=== PATIENT | male | born 1955 | race Caucasian/White ===

== ENCOUNTER 2021-06-13 17:49 | Inpatient (IN) ==
[2021-06-13] MEDS ORDERED: Isovue-370 500 ML BOTTLE IVP ONE (18:21)
[2021-06-13 19:08] LABS: Bilirubin,Urine Negative (Negative); Blood,Urine Negative (Negative); Clarity,Urine Clear (Clear); Color,Urine Colorless (Yellow); Glucose,Urine (UA) Normal (Normal); Ketones,Urine Negative (Negative); Leukocyte Esterase,Urine Negative (Negative); Nitrite,Urine Negative (Negative); Protein,Urine Trace mg/dL (Neg-Trace); Specific Gravity,Urine 1.009 (1.010-1.025); Urobilinogen,Urine Normal (Normal)
[2021-06-13 19:42] LABS: Basophils % 0.8 %; Eosinophils # 0.1 K/mcL (0.0-0.6); Eosinophils % 2.5 %; Hematocrit 39.9 % (37.5-50.1); Hemoglobin 12.5 g/dL (12.9-16.9); Immature Granulocytes % 0.8 % (0-4); Lymphocytes # 2.4 K/mcL (0.6-4.6); Lymphocytes % 47.1 %; Mean Corpuscular HGB Conc 31.3 g/dL (31.6-35.5); Mean Corpuscular Hemoglobin 27.2 pg (28.0-33.3); Mean Corpuscular Volume 86.7 fL (83.0-100.0); Mean Platelet Volume 8.9 fL (9.4-12.4); Monocytes # 0.5 K/mcL (0.0-1.3); Platelet Count 235 K/mcL (140-400); Red Cell Distribution Width 15.6 % (11.5-14.5); Segmented Neutrophils % 39.8 %; White Blood Count 5.1 K/mcL (4.3-11.1)
[2021-06-13 19:49] LABS: Alanine Aminotransferase 20 Units/L (7-52); Albumin 3.8 g/dL (3.5-5.7); Albumin/Globulin Ratio 0.9 (1.1-2.2); Alkaline Phosphatase 105 Units/L (34-104); Aspartate Amino Transferase 46 Units/L (13-39); BUN/Creatinine Ratio 8 (6-26); Bilirubin,Total 0.3 mg/dL (0.3-1.0); Blood Urea Nitrogen 6 mg/dL (8-23); C-Reactive Protein 11 mg/L (Less than 10); Carbon Dioxide 28 mEq/L (23-29); Chloride 101 mEq/L (98-107); Ethanol 377 mg/dL (Less than 10); Globulin 4.2 g/dL (2.4-3.5); Glucose 140 mg/dL (70-105); Osmolality,Calculated 294 (280-300); Potassium 3.9 mEq/L (3.5-5.1); Sodium 142 mEq/L (136-145); eGFR For African Americans > 60 (> 60); eGFR For Non-African Americans > 60 (> 60)
[2021-06-13] MEDS ORDERED: *HR* OxyCODONE Immed Rel 5 MG TABLET PO ONE (22:27)
[2021-06-14] MEDS ORDERED: Ondansetron ODT 4 MG TAB.RAPDIS SL PRN (00:29)
[2021-06-14] MEDS ORDERED: D5% in Water 1,000 ML IVC PRN (00:29)
[2021-06-14] MEDS ORDERED: Naloxone 0.4 MG/ML INJ IVP PRN (00:29)
[2021-06-14] MEDS ORDERED: Melatonin 3 MG TABLET PO PRN (00:29)
[2021-06-14] MEDS ORDERED: Dextrose 4 GM Chewable Tablets PO PRN ×2 (00:29)
[2021-06-14] MEDS ORDERED: *HR* Dextrose 50 % in Water (Syg) 50 ML SYRINGE IVP PRN (00:29)
[2021-06-14] MEDS ORDERED: Ketorolac 30 MG/ML VIAL IM ONE (00:50)
[2021-06-14] MEDS ORDERED: Gadolinium Contrast Agent (WT Based) IV PRN (01:14)
[2021-06-14] MEDS ORDERED: *HR* LORazepam 2 MG/ML VIAL IVP PRN ×3 (01:24→10:50)
[2021-06-14] MEDS: Insulin LISPRO 300 UNITS/3 ML VIAL SUBQ SCH ×4 (02:28→16:19)
[2021-06-14] MEDS: Folic Acid 1 MG in 0.9 % Sodium Chloride 50 ML IVPB SCH ×2 (02:36→09:31)
[2021-06-14] MEDS: Acetaminophen 325 MG TABLET PO PRN ×3 (03:01→21:42)
[2021-06-14 03:12] LABS: INR 1.2; Prothrombin Time 13.3 Seconds (9.4-12.1)
[2021-06-14 03:15] LABS: Activated Partial Thrombo Time 31.1 Seconds (26.0-36.0)
[2021-06-14 03:21] LABS: Basophils % 0.4 %; Eosinophils # 0.2 K/mcL (0.0-0.6); Eosinophils % 2.1 %; Hemoglobin 12.4 g/dL (12.9-16.9); Immature Granulocytes % 0.4 % (0-4); Lymphocytes # 2.1 K/mcL (0.6-4.6); Lymphocytes % 28.7 %; Mean Corpuscular HGB Conc 32.6 g/dL (31.6-35.5); Mean Corpuscular Hemoglobin 27.8 pg (28.0-33.3); Mean Corpuscular Volume 85.2 fL (83.0-100.0); Mean Platelet Volume 9.4 fL (9.4-12.4); Monocytes # 0.7 K/mcL (0.0-1.3); Monocytes % 9.6 %; Neutrophils # 4.3 K/mcL (1.6-8.9); Platelet Count 257 K/mcL (140-400); Red Blood Count 4.46 M/mcL (4.19-5.50); Red Cell Distribution Width 15.6 % (11.5-14.5); Segmented Neutrophils % 58.8 %; White Blood Count 7.3 K/mcL (4.3-11.1)
[2021-06-14 03:30] LABS: Alanine Aminotransferase 19 Units/L (7-52); Albumin 3.8 g/dL (3.5-5.7); Albumin/Globulin Ratio 0.9 (1.1-2.2); Alkaline Phosphatase 99 Units/L (34-104); Aspartate Amino Transferase 43 Units/L (13-39); BUN/Creatinine Ratio 12 (6-26); Bilirubin,Total 0.3 mg/dL (0.3-1.0); Blood Urea Nitrogen 8 mg/dL (8-23); C-Reactive Protein 9 mg/L (Less than 10); Carbon Dioxide 19 mEq/L (23-29); Chloride 100 mEq/L (98-107); Chol/HDL Ratio 3.2 (0-4.9); Cholesterol 178 mg/dL (< 200); Ethanol 93 mg/dL (Less than 10); Globulin 4.1 g/dL (2.4-3.5); Glucose 231 mg/dL (70-105); HDL Cholesterol 55 mg/dL (40-59); LDL Cholesterol,Calculated 85 mg/dL (< 100); Magnesium 1.4 mg/dL (1.6-2.6); Osmolality,Calculated 290 (280-300); Phosphorous 2.5 mg/dL (2.7-4.5); Potassium 3.7 mEq/L (3.5-5.1); Sodium 137 mEq/L (136-145); Total Protein 7.9 g/dL (6.4-8.9); Triglycerides 192 mg/dL (< 150); eGFR For African Americans > 60 (> 60); eGFR For Non-African Americans > 60 (> 60)
[2021-06-14 03:52] LABS: Estimated Average Glucose 148 mg/dl; Hemoglobin A1C 6.8 %
[2021-06-14] MEDS: Thiamine (B-1) 100 MG in 0.9 % Sodium Chloride 50 ML IVPB SCH ×2 (04:23→09:31)
[2021-06-14] MEDS ORDERED: Vancomycin 2,000 MG/520 ML IV.SOLN IVPB ONE (05:00)
[2021-06-14 05:03] LABS: Amphetamine Screen,Urine Negative ng/mL (Cutoff=1000); Barbiturate Screen,Urine Negative ng/mL (Cutoff=200); Benzodiazepines Screen,Urine Negative ng/mL (Cutoff=200); Cannabinoid Screen,Urine Negative ng/mL (Cutoff = 50); Cocaine Screen,Urine Negative ng/mL (Cutoff= 300); Opiate Screen,Urine Negative ng/mL (Cutoff=300); Phencyclidine Screen,Urine Negative ng/mL (Cutoff=25)
[2021-06-14 05:16] LABS: Bacteria,Urine Few per hpf (None-Few); Bilirubin,Urine Negative (Negative); Blood,Urine Negative (Negative); Clarity,Urine Clear (Clear); Color,Urine Yellow (Yellow); Glucose,Urine (UA) 50 mg/dL (Normal); Hyaline Casts,Urine Few per lpf (None Seen); Ketones,Urine Trace mg/dL (Negative); Leukocyte Esterase,Urine Negative (Negative); Mucus,Urine Few per lpf (None-Few); Nitrite,Urine Negative (Negative); Protein,Urine 30 mg/dL (Neg-Trace); Specific Gravity,Urine > 1.030 (1.010-1.025); Squamous Epithelial Cell,Urine Few per hpf (None-Few); Urobilinogen,Urine Normal (Normal); WBC,Urine 0-3 per hpf (0-3)
[2021-06-14] MEDS: 0.9 % Sodium Chloride 1,000 ML IVC SCH ×2 (05:36→21:46)
[2021-06-14] MEDS: *HR* Heparin 5,000 UNIT/ML VIAL SQ SCH ×2 (05:49→18:16)
[2021-06-14] MEDS: Cefepime HCl 2,000 MG in 0.9 % Sodium Chloride 10 ML IVP SCH ×2 (07:42→15:21)
[2021-06-14] MEDS: lisinopriL 20 MG TABLET PO SCH (07:44)
[2021-06-14] MEDS: Gabapentin 400 MG CAPSULE PO SCH ×3 (07:45→21:42)
[2021-06-14] MEDS: *HR* OxyCODONE Immed Rel 5 MG TABLET PO PRN ×2 (10:52→18:17)
[2021-06-14] MEDS ORDERED: GADOBUTROL 30 MMOL/30 ML VIAL IVP ONE (13:05)
[2021-06-14] MEDS ORDERED: Vancomycin 1,500 MG/265 ML IV.SOLN IVPB SCH (17:00)
[2021-06-15] MEDS: Cefepime HCl 2,000 MG in 0.9 % Sodium Chloride 10 ML IVP SCH ×3 (00:02→16:57)
[2021-06-15] MEDS: *HR* OxyCODONE Immed Rel 5 MG TABLET PO PRN ×4 (00:23→20:21)
[2021-06-15] MEDS: Vancomycin 1,500 MG/265 ML IV.SOLN IVPB SCH (05:17)
[2021-06-15] MEDS: *HR* Heparin 5,000 UNIT/ML VIAL SQ SCH ×2 (05:17→16:58)
[2021-06-15] MEDS: Thiamine (B-1) 100 MG in 0.9 % Sodium Chloride 50 ML IVPB SCH (08:41)
[2021-06-15] MEDS: lisinopriL 20 MG TABLET PO SCH (08:41)
[2021-06-15] MEDS: Gabapentin 400 MG CAPSULE PO SCH ×3 (08:41→20:22)
[2021-06-15] MEDS: Aspirin 81 MG TAB.CHEW PO SCH (08:41)
[2021-06-15] MEDS: Insulin LISPRO 300 UNITS/3 ML VIAL SUBQ SCH ×3 (08:43→19:30)
[2021-06-15] MEDS: Folic Acid 1 MG in 0.9 % Sodium Chloride 50 ML IVPB SCH (10:18)
[2021-06-15] MEDS: Acetaminophen 325 MG TABLET PO PRN (10:29)
[2021-06-16] MEDS: Cefepime HCl 2,000 MG in 0.9 % Sodium Chloride 10 ML IVP SCH ×4 (00:24→23:13)
[2021-06-16] MEDS: Vancomycin 1,500 MG/265 ML IV.SOLN IVPB SCH (05:24)
[2021-06-16] MEDS: *HR* Heparin 5,000 UNIT/ML VIAL SQ SCH ×2 (05:24→17:40)
[2021-06-16] MEDS: *HR* OxyCODONE Immed Rel 5 MG TABLET PO PRN ×3 (06:51→22:41)
[2021-06-16 07:43] LABS: Basophils % 0.5 %; Eosinophils # 0.3 K/mcL (0.0-0.6); Eosinophils % 8.1 %; Hematocrit 32.8 % (37.5-50.1); Immature Granulocytes % 0.2 % (0-4); Lymphocytes # 1.4 K/mcL (0.6-4.6); Lymphocytes % 34.5 %; Mean Corpuscular HGB Conc 31.4 g/dL (31.6-35.5); Mean Corpuscular Hemoglobin 28.1 pg (28.0-33.3); Mean Corpuscular Volume 89.4 fL (83.0-100.0); Mean Platelet Volume 9.8 fL (9.4-12.4); Monocytes # 0.6 K/mcL (0.0-1.3); Monocytes % 13.4 %; Neutrophils # 1.8 K/mcL (1.6-8.9); Platelet Count 140 K/mcL (140-400); Red Blood Count 3.67 M/mcL (4.19-5.50); Red Cell Distribution Width 15.1 % (11.5-14.5); Segmented Neutrophils % 43.3 %; White Blood Count 4.1 K/mcL (4.3-11.1)
[2021-06-16 07:59] LABS: Hemoglobin 10.3 g/dL (12.9-16.9)
[2021-06-16] MEDS: lisinopriL 20 MG TABLET PO SCH (08:38)
[2021-06-16] MEDS: Folic Acid 1 MG in 0.9 % Sodium Chloride 50 ML IVPB SCH (08:38)
[2021-06-16] MEDS: Gabapentin 400 MG CAPSULE PO SCH ×3 (08:38→21:24)
[2021-06-16] MEDS: Aspirin 81 MG TAB.CHEW PO SCH (08:59)
[2021-06-16] MEDS: Insulin LISPRO 300 UNITS/3 ML VIAL SUBQ SCH ×3 (08:59→17:40)
[2021-06-16] MEDS ORDERED: amLODIPine 5 MG TABLET PO SCH (09:00)
[2021-06-16] MEDS: Thiamine (B-1) 100 MG in 0.9 % Sodium Chloride 50 ML IVPB SCH (10:57)
[2021-06-16] MEDS: Vancomycin 1,250 MG/262.5 ML IV.SOLN IVPB SCH (21:23)
[2021-06-16] MEDS: Acetaminophen 325 MG TABLET PO PRN (22:38)
[2021-06-17] MEDS: *HR* OxyCODONE Immed Rel 5 MG TABLET PO PRN ×3 (04:35→17:19)
[2021-06-17] MEDS: *HR* Heparin 5,000 UNIT/ML VIAL SQ SCH ×2 (06:19→17:19)
[2021-06-17] MEDS ORDERED: *HR* HYDROmorphone PF 0.5 MG/0.5 ML SYRINGE IVP PRN (07:00)
[2021-06-17 07:01] LABS: Basophils % 0.8 %; Eosinophils # 0.4 K/mcL (0.0-0.6); Eosinophils % 7.5 %; Hematocrit 35.4 % (37.5-50.1); Immature Granulocytes % 0.8 % (0-4); Lymphocytes # 1.9 K/mcL (0.6-4.6); Lymphocytes % 38.3 %; Mean Corpuscular HGB Conc 31.1 g/dL (31.6-35.5); Mean Corpuscular Hemoglobin 27.6 pg (28.0-33.3); Mean Corpuscular Volume 88.9 fL (83.0-100.0); Mean Platelet Volume 9.3 fL (9.4-12.4); Monocytes # 0.5 K/mcL (0.0-1.3); Monocytes % 10.8 %; Neutrophils # 2.1 K/mcL (1.6-8.9); Platelet Count 153 K/mcL (140-400); Red Blood Count 3.98 M/mcL (4.19-5.50); Red Cell Distribution Width 15.2 % (11.5-14.5); Segmented Neutrophils % 41.8 %; White Blood Count 4.9 K/mcL (4.3-11.1)
[2021-06-17] MEDS ORDERED: Lidocaine 1% 20 ML MDV ONE (07:03)
[2021-06-17] MEDS: Aspirin 81 MG TAB.CHEW PO SCH (07:29)
[2021-06-17] MEDS: lisinopriL 20 MG TABLET PO SCH (07:29)
[2021-06-17] MEDS: Gabapentin 400 MG CAPSULE PO SCH ×3 (07:30→20:23)
[2021-06-17] MEDS ORDERED: Ondansetron 4 MG/2 ML VIAL IVP PRN (07:58)
[2021-06-17] MEDS ORDERED: Lidocaine -MPF 2% 2 ML VIAL ONE (08:00)
[2021-06-17] MEDS ORDERED: Ringers Solution, Lactated 1,000 ML IVC SCH (08:00)
[2021-06-17] MEDS ORDERED: Ketamine HCL *QUVA* 50mg (1mL) SYRINGE ONE (08:09)
[2021-06-17] MEDS ORDERED: Bupivacaine/EPI 1:200k 0.25% 50 ML VIAL ONE (08:26)
[2021-06-17] MEDS ORDERED: Ondansetron ODT 4 MG TAB.RAPDIS SL PRN (09:35)
[2021-06-17] MEDS ORDERED: *HR* LORazepam 2 MG/ML VIAL IVP PRN ×3 (09:35)
[2021-06-17] MEDS ORDERED: D5% in Water 1,000 ML IVC PRN (09:35)
[2021-06-17] MEDS ORDERED: Dextrose 4 GM Chewable Tablets PO PRN ×2 (09:35)
[2021-06-17] MEDS ORDERED: Naloxone 0.4 MG/ML INJ IVP PRN (09:35)
[2021-06-17] MEDS ORDERED: *HR* Dextrose 50 % in Water (Syg) 50 ML SYRINGE IVP PRN (09:35)
[2021-06-17] MEDS: Insulin LISPRO 300 UNITS/3 ML VIAL SUBQ SCH ×3 (09:36→17:27)
[2021-06-17] MEDS: Thiamine (B-1) 100 MG in 0.9 % Sodium Chloride 50 ML IVPB SCH (09:38)
[2021-06-17] MEDS: Vancomycin 1,250 MG/262.5 ML IV.SOLN IVPB SCH ×3 (09:39→20:56)
[2021-06-17] MEDS: Folic Acid 1 MG in 0.9 % Sodium Chloride 50 ML IVPB SCH (09:39)
[2021-06-17] MEDS: Cefepime HCl 2,000 MG in 0.9 % Sodium Chloride 10 ML IVP SCH ×3 (09:39→17:20)
[2021-06-17] MEDS ORDERED: Ketorolac 30 MG/ML VIAL IVP ONE (11:08)
[2021-06-17] MEDS ORDERED: *HR* HYDROmorphone (PF) 1 MG/ML SYRINGE IVP STA (13:17)
[2021-06-17] MEDS: *HR* HYDROmorphone 2 MG/ML SYRINGE IVP PRN (20:20)
[2021-06-17] MEDS: Melatonin 3 MG TABLET PO PRN (20:20)
[2021-06-18] MEDS: *HR* OxyCODONE Immed Rel 5 MG TABLET PO PRN ×4 (00:50→21:07)
[2021-06-18] MEDS: Cefepime HCl 2,000 MG in 0.9 % Sodium Chloride 10 ML IVP SCH ×3 (01:38→18:21)
[2021-06-18] MEDS: *HR* Heparin 5,000 UNIT/ML VIAL SQ SCH ×2 (05:27→18:21)
[2021-06-18 05:55] LABS: Basophils % 0.6 %; Eosinophils # 0.3 K/mcL (0.0-0.6); Eosinophils % 5.4 %; Hematocrit 29.2 % (37.5-50.1); Immature Granulocytes % 0.6 % (0-4); Lymphocytes # 1.1 K/mcL (0.6-4.6); Lymphocytes % 20.3 %; Mean Corpuscular HGB Conc 30.8 g/dL (31.6-35.5); Mean Corpuscular Hemoglobin 27.8 pg (28.0-33.3); Mean Corpuscular Volume 90.1 fL (83.0-100.0); Mean Platelet Volume 9.3 fL (9.4-12.4); Monocytes # 0.7 K/mcL (0.0-1.3); Monocytes % 13.2 %; Neutrophils # 3.1 K/mcL (1.6-8.9); Platelet Count 132 K/mcL (140-400); Red Blood Count 3.24 M/mcL (4.19-5.50); Red Cell Distribution Width 15.3 % (11.5-14.5); Segmented Neutrophils % 59.9 %; White Blood Count 5.2 K/mcL (4.3-11.1)
[2021-06-18 06:17] LABS: BUN/Creatinine Ratio 16 (6-26); Blood Urea Nitrogen 12 mg/dL (8-23); Calcium 8.6 mg/dL (8.6-10.3); Carbon Dioxide 26 mEq/L (23-29); Chloride 106 mEq/L (98-107); Glucose 157 mg/dL (70-105); Osmolality,Calculated 291 (280-300); Potassium 4.2 mEq/L (3.5-5.1); Sodium 139 mEq/L (136-145); eGFR For African Americans > 60 (> 60); eGFR For Non-African Americans > 60 (> 60)
[2021-06-18] MEDS: Gabapentin 400 MG CAPSULE PO SCH ×3 (08:35→21:03)
[2021-06-18] MEDS: lisinopriL 20 MG TABLET PO SCH (08:35)
[2021-06-18] MEDS: Aspirin 81 MG TAB.CHEW PO SCH (08:35)
[2021-06-18] MEDS: Insulin LISPRO 300 UNITS/3 ML VIAL SUBQ SCH ×3 (08:36→17:34)
[2021-06-18] MEDS ORDERED: Thiamine (B-1) 100 MG in 0.9 % Sodium Chloride 50 ML IVPB SCH (09:00)
[2021-06-18] MEDS ORDERED: Folic Acid 1 MG in 0.9 % Sodium Chloride 50 ML IVPB SCH (09:00)
[2021-06-18] MEDS ORDERED: Furosemide 20 MG/2 ML VIAL IVP ONE (10:42)
[2021-06-18] MEDS: Vancomycin 1,500 MG/265 ML IV.SOLN IVPB SCH ×2 (11:42→23:03)
[2021-06-18] MEDS: *HR* HYDROmorphone 2 MG/ML SYRINGE IVP PRN (16:18)
[2021-06-18] MEDS: Melatonin 3 MG TABLET PO PRN (23:03)
[2021-06-18] MEDS: Vancomycin 1,250 MG/262.5 ML IV.SOLN IVPB SCH (23:57)
[2021-06-19] MEDS: Cefepime HCl 2,000 MG in 0.9 % Sodium Chloride 10 ML IVP SCH ×3 (01:59→16:33)
[2021-06-19] MEDS: *HR* OxyCODONE Immed Rel 5 MG TABLET PO PRN ×2 (04:59→16:36)
[2021-06-19] MEDS: *HR* Heparin 5,000 UNIT/ML VIAL SQ SCH ×2 (05:00→16:35)
[2021-06-19 06:19] LABS: Basophils % 0.5 %; Eosinophils # 0.3 K/mcL (0.0-0.6); Eosinophils % 4.4 %; Hematocrit 30.2 % (37.5-50.1); Hemoglobin 9.4 g/dL (12.9-16.9); Immature Granulocytes % 0.5 % (0-4); Lymphocytes # 1.6 K/mcL (0.6-4.6); Lymphocytes % 27.7 %; Mean Corpuscular HGB Conc 31.1 g/dL (31.6-35.5); Mean Corpuscular Hemoglobin 27.9 pg (28.0-33.3); Mean Corpuscular Volume 89.6 fL (83.0-100.0); Mean Platelet Volume 9.6 fL (9.4-12.4); Monocytes # 0.9 K/mcL (0.0-1.3); Platelet Count 152 K/mcL (140-400); Red Blood Count 3.37 M/mcL (4.19-5.50); Red Cell Distribution Width 15.8 % (11.5-14.5); Segmented Neutrophils % 51.9 %; White Blood Count 5.7 K/mcL (4.3-11.1)
[2021-06-19 06:51] LABS: BUN/Creatinine Ratio 14 (6-26); Blood Urea Nitrogen 12 mg/dL (8-23); Calcium 9.1 mg/dL (8.6-10.3); Carbon Dioxide 26 mEq/L (23-29); Chloride 104 mEq/L (98-107); Glucose 145 mg/dL (70-105); Osmolality,Calculated 290 (280-300); Potassium 3.8 mEq/L (3.5-5.1); Sodium 139 mEq/L (136-145); eGFR For African Americans > 60 (> 60); eGFR For Non-African Americans > 60 (> 60)
[2021-06-19] MEDS: *HR* HYDROmorphone 2 MG/ML SYRINGE IVP PRN ×2 (07:38→11:41)
[2021-06-19] MEDS: Aspirin 81 MG TAB.CHEW PO SCH (07:39)
[2021-06-19] MEDS: Gabapentin 400 MG CAPSULE PO SCH ×3 (07:39→20:14)
[2021-06-19] MEDS: lisinopriL 20 MG TABLET PO SCH (07:39)
[2021-06-19] MEDS: Insulin LISPRO 300 UNITS/3 ML VIAL SUBQ SCH ×3 (07:40→16:36)
[2021-06-19] MEDS: Vancomycin 1,500 MG/265 ML IV.SOLN IVPB SCH ×2 (11:41→23:47)
[2021-06-19] MEDS: Acetaminophen 325 MG TABLET PO PRN (20:14)
[2021-06-20] MEDS: *HR* HYDROmorphone 2 MG/ML SYRINGE IVP PRN ×2 (00:47→08:17)
[2021-06-20] MEDS: Cefepime HCl 2,000 MG in 0.9 % Sodium Chloride 10 ML IVP SCH ×3 (02:47→17:49)
[2021-06-20] MEDS: *HR* Heparin 5,000 UNIT/ML VIAL SQ SCH ×2 (04:54→16:55)
[2021-06-20] MEDS: *HR* OxyCODONE Immed Rel 5 MG TABLET PO PRN ×4 (04:55→22:12)
[2021-06-20 06:02] LABS: Basophils % 0.6 %; Eosinophils # 0.2 K/mcL (0.0-0.6); Eosinophils % 4.9 %; Hematocrit 28.9 % (37.5-50.1); Hemoglobin 8.9 g/dL (12.9-16.9); Immature Granulocytes % 0.8 % (0-4); Lymphocytes # 1.3 K/mcL (0.6-4.6); Lymphocytes % 28.2 %; Mean Corpuscular HGB Conc 30.8 g/dL (31.6-35.5); Mean Corpuscular Hemoglobin 27.7 pg (28.0-33.3); Monocytes # 0.9 K/mcL (0.0-1.3); Monocytes % 19.7 %; Neutrophils # 2.2 K/mcL (1.6-8.9); Platelet Count 148 K/mcL (140-400); Red Blood Count 3.21 M/mcL (4.19-5.50); Red Cell Distribution Width 15.6 % (11.5-14.5); Segmented Neutrophils % 45.8 %; White Blood Count 4.7 K/mcL (4.3-11.1)
[2021-06-20 06:16] LABS: BUN/Creatinine Ratio 14 (6-26); Blood Urea Nitrogen 10 mg/dL (8-23); Calcium 8.9 mg/dL (8.6-10.3); Carbon Dioxide 27 mEq/L (23-29); Chloride 105 mEq/L (98-107); Glucose 153 mg/dL (70-105); Osmolality,Calculated 290 (280-300); Potassium 3.6 mEq/L (3.5-5.1); Sodium 139 mEq/L (136-145); eGFR For African Americans > 60 (> 60); eGFR For Non-African Americans > 60 (> 60)
[2021-06-20 06:43] LABS: Platelet Estimate Normal (Normal)
[2021-06-20] MEDS: lisinopriL 20 MG TABLET PO SCH (07:48)
[2021-06-20] MEDS: Gabapentin 400 MG CAPSULE PO SCH ×3 (07:49→20:11)
[2021-06-20] MEDS: Aspirin 81 MG TAB.CHEW PO SCH (07:49)
[2021-06-20] MEDS: Insulin LISPRO 300 UNITS/3 ML VIAL SUBQ SCH ×3 (07:49→16:55)
[2021-06-20] MEDS: Vancomycin 1,500 MG/265 ML IV.SOLN IVPB SCH ×2 (11:38→22:11)
[2021-06-20] MEDS: Acetaminophen 325 MG TABLET PO PRN (12:36)
[2021-06-20] MEDS: Melatonin 3 MG TABLET PO PRN (20:11)
[2021-06-21] MEDS: Vancomycin 1,500 MG/265 ML IV.SOLN IVPB SCH (00:23)
[2021-06-21] MEDS: Cefepime HCl 2,000 MG in 0.9 % Sodium Chloride 10 ML IVP SCH ×2 (01:33→09:42)
[2021-06-21 05:26] LABS: Basophils % 0.9 %; Eosinophils # 0.2 K/mcL (0.0-0.6); Eosinophils % 5.2 %; Hematocrit 28.2 % (37.5-50.1); Hemoglobin 8.4 g/dL (12.9-16.9); Immature Granulocytes % 1.1 % (0-4); Lymphocytes # 1.2 K/mcL (0.6-4.6); Lymphocytes % 27.7 %; Mean Corpuscular HGB Conc 29.8 g/dL (31.6-35.5); Mean Corpuscular Hemoglobin 27.2 pg (28.0-33.3); Mean Corpuscular Volume 91.3 fL (83.0-100.0); Mean Platelet Volume 9.9 fL (9.4-12.4); Monocytes % 22.4 %; Neutrophils # 1.9 K/mcL (1.6-8.9); Nucleated Red Blood Cells 0.5 /100 WBC (0); Platelet Count 160 K/mcL (140-400); Red Blood Count 3.09 M/mcL (4.19-5.50); Red Cell Distribution Width 15.9 % (11.5-14.5); Segmented Neutrophils % 42.7 %; White Blood Count 4.4 K/mcL (4.3-11.1)
[2021-06-21 05:35] LABS: Platelet Estimate Normal (Normal)
[2021-06-21 05:48] LABS: BUN/Creatinine Ratio 13 (6-26); Blood Urea Nitrogen 9 mg/dL (8-23); Calcium 8.6 mg/dL (8.6-10.3); Carbon Dioxide 27 mEq/L (23-29); Chloride 106 mEq/L (98-107); Glucose 171 mg/dL (70-105); Osmolality,Calculated 293 (280-300); Potassium 3.8 mEq/L (3.5-5.1); Sodium 140 mEq/L (136-145); eGFR For African Americans > 60 (> 60); eGFR For Non-African Americans > 60 (> 60)
[2021-06-21] MEDS: *HR* Heparin 5,000 UNIT/ML VIAL SQ SCH (05:58)
[2021-06-21] MEDS: *HR* OxyCODONE Immed Rel 5 MG TABLET PO PRN ×2 (06:03→10:30)
[2021-06-21] MEDS: Insulin LISPRO 300 UNITS/3 ML VIAL SUBQ SCH ×2 (08:51→12:05)
[2021-06-21] MEDS: lisinopriL 20 MG TABLET PO SCH (09:43)
[2021-06-21] MEDS: Aspirin 81 MG TAB.CHEW PO SCH (09:43)
[2021-06-21] MEDS: Gabapentin 400 MG CAPSULE PO SCH ×2 (10:29→15:45)
[2021-06-21] MEDS: Acetaminophen 325 MG TABLET PO PRN (10:30)
[2021-06-21] MEDS ORDERED: DAPTOmycin 650 MG in 0.9 % Sodium Chloride 100 ML IVPB SCH (11:00)
[2021-06-21 15:36] VITALS: BP 148/62; PULSE 78; TEMP 97.2; O2SAT 95
== END 2021-06-21 16:01 | DRG 617 ==
LOC: EMEROOARM 17:49 → 3ANU 17:49 → SUATTDRO 06-14 00:30 → 3ANU 06-14 01:39 → SUATTDRO 06-16 18:00
PROVIDERS: ADMIT Internal Medicine; ATTEND Hospitalist

== ENCOUNTER 2021-07-25 15:40 | Inpatient (IN) ==
[2021-07-25] MEDS ORDERED: Ondansetron ODT 4 MG TAB.RAPDIS SL PRN (15:57)
[2021-07-25] MEDS ORDERED: Naloxone 0.4 MG/ML INJ IVP PRN (15:57)
[2021-07-25] MEDS ORDERED: *HR* Dextrose 50 % in Water (Syg) 50 ML SYRINGE IVP PRN (16:03)
[2021-07-25] MEDS ORDERED: D5% in Water 1,000 ML IVC PRN (16:03)
[2021-07-25] MEDS ORDERED: Dextrose 4 GM Chewable Tablets PO PRN ×2 (16:03)
[2021-07-25 16:57] LABS: Alanine Aminotransferase 46 Units/L (7-52); Albumin 3.6 g/dL (3.5-5.7); Alkaline Phosphatase 116 Units/L (34-104); Aspartate Amino Transferase 34 Units/L (13-39); BUN/Creatinine Ratio 16 (6-26); Bilirubin,Total 0.7 mg/dL (0.3-1.0); Blood Urea Nitrogen 14 mg/dL (8-23); C-Reactive Protein 73 mg/L (Less than 10); Carbon Dioxide 24 mEq/L (23-29); Chloride 102 mEq/L (98-107); Globulin 3.6 g/dL (2.4-3.5); Glucose 286 mg/dL (70-105); Osmolality,Calculated 287 (280-300); Potassium 4.2 mEq/L (3.5-5.1); Sodium 133 mEq/L (136-145); Total Protein 7.2 g/dL (6.4-8.9); eGFR For African Americans > 60 (> 60); eGFR For Non-African Americans > 60 (> 60)
[2021-07-25 16:58] LABS: INR 1.3; Prothrombin Time 14.6 Seconds (9.4-12.1)
[2021-07-25] MEDS ORDERED: DAPTOmycin 750 MG in 0.9 % Sodium Chloride 100 ML IVPB SCH (17:00)
[2021-07-25] MEDS: Ringers Solution, Lactated 1,000 ML IVC SCH (17:00)
[2021-07-25] MEDS: *HR* OxyCODONE Immed Rel 5 MG TABLET PO PRN ×2 (17:00→23:15)
[2021-07-25] MEDS: Insulin LISPRO 300 UNITS/3 ML VIAL SUBQ SCH (17:01)
[2021-07-25 17:41] LABS: Basophils # 0.1 K/mcL (0.0-0.2); Basophils % 0.7 %; Eosinophils # 0.3 K/mcL (0.0-0.6); Hematocrit 31.8 % (37.5-50.1); Hemoglobin 9.8 g/dL (12.9-16.9); Immature Granulocytes % 1.4 % (0-4); Lymphocytes % 24.4 %; Mean Corpuscular HGB Conc 30.8 g/dL (31.6-35.5); Mean Corpuscular Hemoglobin 25.3 pg (28.0-33.3); Mean Platelet Volume 9.9 fL (9.4-12.4); Monocytes # 1.4 K/mcL (0.0-1.3); Neutrophils # 4.2 K/mcL (1.6-8.9); Nucleated Red Blood Cells 0.2 /100 WBC (0); Platelet Count 196 K/mcL (140-400); Red Blood Count 3.88 M/mcL (4.19-5.50); Red Cell Distribution Width 17.4 % (11.5-14.5); Segmented Neutrophils % 52.5 %; White Blood Count 8.1 K/mcL (4.3-11.1)
[2021-07-25] MEDS: Gabapentin 400 MG CAPSULE PO SCH (20:31)
[2021-07-25] MEDS ORDERED: Insulin LISPRO 300 UNITS/3 ML VIAL SUBQ SCH (21:00)
[2021-07-25] MEDS: *HR* Heparin 5,000 UNIT/ML VIAL SQ SCH (21:59)
[2021-07-26 04:52] LABS: Basophils # 0.1 K/mcL (0.0-0.2); Basophils % 0.9 %; Eosinophils # 0.4 K/mcL (0.0-0.6); Eosinophils % 4.5 %; Hematocrit 33.5 % (37.5-50.1); Hemoglobin 10.1 g/dL (12.9-16.9); Immature Granulocytes % 1.9 % (0-4); Lymphocytes % 24.5 %; Mean Corpuscular HGB Conc 30.1 g/dL (31.6-35.5); Mean Corpuscular Hemoglobin 24.6 pg (28.0-33.3); Mean Corpuscular Volume 81.5 fL (83.0-100.0); Mean Platelet Volume 9.9 fL (9.4-12.4); Monocytes # 1.2 K/mcL (0.0-1.3); Monocytes % 14.5 %; Neutrophils # 4.3 K/mcL (1.6-8.9); Platelet Count 208 K/mcL (140-400); Red Blood Count 4.11 M/mcL (4.19-5.50); Red Cell Distribution Width 17.1 % (11.5-14.5); Segmented Neutrophils % 53.7 %
[2021-07-26] MEDS ORDERED: Acetaminophen 325 MG TABLET PO PRN (04:53)
[2021-07-26 05:10] LABS: BUN/Creatinine Ratio 16 (6-26); Blood Urea Nitrogen 12 mg/dL (8-23); Calcium 9.2 mg/dL (8.6-10.3); Carbon Dioxide 25 mEq/L (23-29); Chloride 103 mEq/L (98-107); Glucose 147 mg/dL (70-105); Osmolality,Calculated 282 (280-300); Potassium 4.4 mEq/L (3.5-5.1); Sodium 135 mEq/L (136-145); eGFR For African Americans > 60 (> 60); eGFR For Non-African Americans > 60 (> 60)
[2021-07-26] MEDS: *HR* OxyCODONE Immed Rel 5 MG TABLET PO PRN ×3 (05:19→20:06)
[2021-07-26] MEDS: *HR* Heparin 5,000 UNIT/ML VIAL SQ SCH ×3 (05:21→21:26)
[2021-07-26] MEDS: Ringers Solution, Lactated 1,000 ML IVC SCH (06:24)
[2021-07-26] MEDS: Gabapentin 400 MG CAPSULE PO SCH ×3 (07:52→20:06)
[2021-07-26] MEDS: Insulin LISPRO 300 UNITS/3 ML VIAL SUBQ SCH ×3 (08:41→20:27)
[2021-07-26] MEDS ORDERED: Multivit/Ca/Min/Fe/FA 1 TAB TABLET PO SCH (09:00)
[2021-07-26] MEDS ORDERED: Cholecalciferol (D-3) 1,000 UNIT (25MCG) TABLET PO SCH (09:00)
[2021-07-26] MEDS ORDERED: Cefepime HCl 2,000 MG in 0.9 % Sodium Chloride Mini Bag 100 ML IVPB SCH (17:00)
[2021-07-26] MEDS ORDERED: *HR* FentaNYL (PF) 100 MCG/2 ML VIAL ONE (17:45)
[2021-07-26] MEDS ORDERED: Lidocaine -MPF 2% 2 ML VIAL ONE ×2 (17:45)
[2021-07-26] MEDS ORDERED: *HR* Propofol 200 MG/20 ML VIAL IVP ONE (17:45)
[2021-07-26] MEDS ORDERED: Lidocaine 1% 20 ML MDV ONE (17:47)
[2021-07-26] MEDS ORDERED: Vancomycin 1,000 MG VIAL ONE (18:33)
[2021-07-26] MEDS ORDERED: *HR* HYDROMORPHONE 2 MG/ML VIAL ONE (19:11)
[2021-07-26] MEDS ORDERED: Ondansetron ODT 4 MG TAB.RAPDIS SL PRN (19:21)
[2021-07-26] MEDS ORDERED: *HR* Dextrose 50 % in Water (Syg) 50 ML SYRINGE IVP PRN (19:21)
[2021-07-26] MEDS ORDERED: Naloxone 0.4 MG/ML INJ IVP PRN (19:21)
[2021-07-26] MEDS ORDERED: Dextrose 4 GM Chewable Tablets PO PRN ×2 (19:21)
[2021-07-26] MEDS ORDERED: D5% in Water 1,000 ML IVC PRN (19:21)
[2021-07-26] MEDS ORDERED: Clindamycin 600 MG/50 ML 600 MG/50 ML IV.SOLN IVPB SCH (20:00)
[2021-07-26] MEDS ORDERED: DAPTOmycin 650 MG in 0.9 % Sodium Chloride 100 ML IVPB SCH (20:00)
[2021-07-26] MEDS: Cefepime HCl 2,000 MG in 0.9 % Sodium Chloride 10 ML IVP SCH (20:06)
[2021-07-26] MEDS: Clindamycin 600 MG/50 ML 600 MG/50 ML IV.SOLN IVPB SCH (20:07)
[2021-07-26] MEDS: DAPTOmycin 650 MG in 0.9 % Sodium Chloride 100 ML IVPB SCH (21:26)
[2021-07-27] MEDS: Acetaminophen 325 MG TABLET PO PRN ×3 (01:26→15:41)
[2021-07-27] MEDS: *HR* OxyCODONE Immed Rel 5 MG TABLET PO PRN ×3 (02:13→17:42)
[2021-07-27 03:57] LABS: Basophils % 0.6 %; Eosinophils # 0.2 K/mcL (0.0-0.6); Hematocrit 29.7 % (37.5-50.1); Immature Granulocytes % 0.9 % (0-4); Lymphocytes # 1.2 K/mcL (0.6-4.6); Mean Corpuscular HGB Conc 30.3 g/dL (31.6-35.5); Mean Corpuscular Hemoglobin 24.2 pg (28.0-33.3); Mean Corpuscular Volume 79.8 fL (83.0-100.0); Mean Platelet Volume 10.2 fL (9.4-12.4); Monocytes # 0.9 K/mcL (0.0-1.3); Monocytes % 14.2 %; Platelet Count 207 K/mcL (140-400); Red Blood Count 3.72 M/mcL (4.19-5.50); Red Cell Distribution Width 17.1 % (11.5-14.5); Segmented Neutrophils % 62.3 %; White Blood Count 6.4 K/mcL (4.3-11.1)
[2021-07-27] MEDS: Cefepime HCl 2,000 MG in 0.9 % Sodium Chloride 10 ML IVP SCH ×3 (04:17→20:22)
[2021-07-27] MEDS: Clindamycin 600 MG/50 ML 600 MG/50 ML IV.SOLN IVPB SCH ×3 (04:17→20:21)
[2021-07-27 04:18] LABS: Alanine Aminotransferase 36 Units/L (7-52); Albumin 3.3 g/dL (3.5-5.7); Albumin/Globulin Ratio 0.9 (1.1-2.2); Alkaline Phosphatase 110 Units/L (34-104); Aspartate Amino Transferase 28 Units/L (13-39); BUN/Creatinine Ratio 17 (6-26); Bilirubin,Total 0.8 mg/dL (0.3-1.0); Blood Urea Nitrogen 13 mg/dL (8-23); Calcium 8.8 mg/dL (8.6-10.3); Carbon Dioxide 26 mEq/L (23-29); Chloride 100 mEq/L (98-107); Globulin 3.5 g/dL (2.4-3.5); Glucose 235 mg/dL (70-105); Osmolality,Calculated 286 (280-300); Potassium 4.4 mEq/L (3.5-5.1); Sodium 134 mEq/L (136-145); Total Protein 6.8 g/dL (6.4-8.9); eGFR For African Americans > 60 (> 60); eGFR For Non-African Americans > 60 (> 60)
[2021-07-27] MEDS: *HR* Heparin 5,000 UNIT/ML VIAL SQ SCH ×2 (06:02→14:36)
[2021-07-27] MEDS: Cholecalciferol (D-3) 1,000 UNIT (25MCG) TABLET PO SCH (07:43)
[2021-07-27] MEDS: Gabapentin 400 MG CAPSULE PO SCH ×5 (07:43→20:23)
[2021-07-27] MEDS: Multivit/Ca/Min/Fe/FA 1 TAB TABLET PO SCH (07:43)
[2021-07-27] MEDS ORDERED: Morphine Sulfate 2 MG/ML SYRINGE IVP PRN (07:54)
[2021-07-27] MEDS: Insulin LISPRO 300 UNITS/3 ML VIAL SUBQ SCH ×4 (08:45→20:23)
[2021-07-27] MEDS: Morphine Sulfate 2 MG/ML SYRINGE IVP PRN ×3 (12:19→23:39)
[2021-07-27] MEDS ORDERED: Isovue-370 500 ML BOTTLE IVP ONE (15:58)
[2021-07-27] MEDS ORDERED: *HR* Heparin 5,000 UNIT/ML VIAL IVP PRN (19:47)
[2021-07-27] MEDS: DAPTOmycin 650 MG in 0.9 % Sodium Chloride 100 ML IVPB SCH (20:21)
[2021-07-27] MEDS: Heparin 25,000UNIT/250ML 1/2NS 25,000 UNIT/250 ML IV.SOLN IVC SCH (21:22)
[2021-07-28] MEDS: Cefepime HCl 2,000 MG in 0.9 % Sodium Chloride 10 ML IVP SCH ×3 (04:01→20:51)
[2021-07-28] MEDS: Clindamycin 600 MG/50 ML 600 MG/50 ML IV.SOLN IVPB SCH ×3 (04:01→20:54)
[2021-07-28 04:10] LABS: Basophils # 0.1 K/mcL (0.0-0.2); Basophils % 0.6 %; Eosinophils # 0.2 K/mcL (0.0-0.6); Eosinophils % 2.6 %; Hematocrit 29.5 % (37.5-50.1); Immature Granulocytes % 0.7 % (0-4); Lymphocytes # 1.6 K/mcL (0.6-4.6); Lymphocytes % 19.1 %; Mean Corpuscular HGB Conc 30.5 g/dL (31.6-35.5); Mean Corpuscular Hemoglobin 24.4 pg (28.0-33.3); Mean Corpuscular Volume 79.9 fL (83.0-100.0); Mean Platelet Volume 9.8 fL (9.4-12.4); Monocytes # 1.3 K/mcL (0.0-1.3); Monocytes % 16.1 %; Platelet Count 217 K/mcL (140-400); Red Blood Count 3.69 M/mcL (4.19-5.50); Red Cell Distribution Width 17.5 % (11.5-14.5); Segmented Neutrophils % 60.9 %; White Blood Count 8.2 K/mcL (4.3-11.1)
[2021-07-28 04:22] LABS: BUN/Creatinine Ratio 13 (6-26); Blood Urea Nitrogen 9 mg/dL (8-23); Calcium 8.9 mg/dL (8.6-10.3); Carbon Dioxide 25 mEq/L (23-29); Chloride 104 mEq/L (98-107); Glucose 194 mg/dL (70-105); Osmolality,Calculated 282 (280-300); Potassium 4.3 mEq/L (3.5-5.1); Sodium 134 mEq/L (136-145); eGFR For African Americans > 60 (> 60); eGFR For Non-African Americans > 60 (> 60)
[2021-07-28] MEDS: *HR* Heparin 5,000 UNIT/ML VIAL IVP PRN (04:52)
[2021-07-28] MEDS: *HR* OxyCODONE Immed Rel 5 MG TABLET PO PRN ×3 (05:03→16:25)
[2021-07-28] MEDS: Multivit/Ca/Min/Fe/FA 1 TAB TABLET PO SCH (08:22)
[2021-07-28] MEDS: Acetaminophen 325 MG TABLET PO PRN (08:22)
[2021-07-28] MEDS: Gabapentin 400 MG CAPSULE PO SCH ×6 (08:23→20:53)
[2021-07-28] MEDS: Aspirin 81 MG TAB.CHEW PO SCH (08:23)
[2021-07-28] MEDS: Morphine Sulfate 2 MG/ML SYRINGE IVP PRN ×3 (08:24→20:46)
[2021-07-28] MEDS: Loratadine 10 MG TABLET PO SCH (08:24)
[2021-07-28] MEDS: lisinopriL 20 MG TABLET PO SCH (08:24)
[2021-07-28] MEDS: Cholecalciferol (D-3) 1,000 UNIT (25MCG) TABLET PO SCH (08:24)
[2021-07-28] MEDS ORDERED: Perflutren Lipid Microsphere 1.3 ML in 0.9 % Sodium Chloride 8.7 ML IVP PRN (08:25)
[2021-07-28] MEDS: Insulin LISPRO 300 UNITS/3 ML VIAL SUBQ SCH ×4 (08:25→20:54)
[2021-07-28] MEDS: Heparin 25,000UNIT/250ML 1/2NS 25,000 UNIT/250 ML IV.SOLN IVC SCH (12:02)
[2021-07-28] MEDS: DAPTOmycin 650 MG in 0.9 % Sodium Chloride 100 ML IVPB SCH (22:44)
[2021-07-29] MEDS: *HR* OxyCODONE Immed Rel 5 MG TABLET PO PRN ×4 (00:28→19:25)
[2021-07-29] MEDS: Cefepime HCl 2,000 MG in 0.9 % Sodium Chloride 10 ML IVP SCH ×3 (03:32→19:26)
[2021-07-29] MEDS: Clindamycin 600 MG/50 ML 600 MG/50 ML IV.SOLN IVPB SCH ×2 (03:33→13:16)
[2021-07-29] MEDS: Morphine Sulfate 2 MG/ML SYRINGE IVP PRN ×4 (03:34→22:32)
[2021-07-29] MEDS: Cholecalciferol (D-3) 1,000 UNIT (25MCG) TABLET PO SCH (07:56)
[2021-07-29] MEDS: lisinopriL 20 MG TABLET PO SCH (07:56)
[2021-07-29] MEDS: Multivit/Ca/Min/Fe/FA 1 TAB TABLET PO SCH (07:56)
[2021-07-29] MEDS: Gabapentin 400 MG CAPSULE PO SCH ×3 (07:56→21:36)
[2021-07-29] MEDS: Aspirin 81 MG TAB.CHEW PO SCH (07:57)
[2021-07-29] MEDS: Loratadine 10 MG TABLET PO SCH (07:57)
[2021-07-29] MEDS: Insulin LISPRO 300 UNITS/3 ML VIAL SUBQ SCH ×4 (08:12→21:37)
[2021-07-29] MEDS: DAPTOmycin 650 MG in 0.9 % Sodium Chloride 100 ML IVPB SCH (21:36)
[2021-07-29] MEDS: Heparin 25,000UNIT/250ML 1/2NS 25,000 UNIT/250 ML IV.SOLN IVC SCH (22:08)
[2021-07-29] MEDS: *HR* Heparin 5,000 UNIT/ML VIAL IVP PRN (22:42)
[2021-07-30] MEDS: *HR* OxyCODONE Immed Rel 5 MG TABLET PO PRN ×4 (02:42→19:39)
[2021-07-30] MEDS: Cefepime HCl 2,000 MG in 0.9 % Sodium Chloride 10 ML IVP SCH ×2 (03:26→11:33)
[2021-07-30] MEDS: Morphine Sulfate 2 MG/ML SYRINGE IVP PRN ×3 (04:36→17:42)
[2021-07-30 04:49] LABS: Basophils # 0.1 K/mcL (0.0-0.2); Basophils % 0.8 %; Eosinophils # 0.4 K/mcL (0.0-0.6); Eosinophils % 5.1 %; Hemoglobin 8.5 g/dL (12.9-16.9); Immature Granulocytes % 1.3 % (0-4); Lymphocytes # 1.4 K/mcL (0.6-4.6); Lymphocytes % 18.8 %; Mean Corpuscular HGB Conc 29.3 g/dL (31.6-35.5); Mean Corpuscular Hemoglobin 24.2 pg (28.0-33.3); Mean Corpuscular Volume 82.6 fL (83.0-100.0); Mean Platelet Volume 9.7 fL (9.4-12.4); Monocytes # 0.9 K/mcL (0.0-1.3); Monocytes % 12.1 %; Neutrophils # 4.7 K/mcL (1.6-8.9); Platelet Count 216 K/mcL (140-400); Red Blood Count 3.51 M/mcL (4.19-5.50); Red Cell Distribution Width 17.4 % (11.5-14.5); Segmented Neutrophils % 61.9 %; White Blood Count 7.6 K/mcL (4.3-11.1)
[2021-07-30 05:09] LABS: Alanine Aminotransferase 28 Units/L (7-52); Albumin 3.5 g/dL (3.5-5.7); Albumin/Globulin Ratio 0.9 (1.1-2.2); Alkaline Phosphatase 94 Units/L (34-104); Aspartate Amino Transferase 22 Units/L (13-39); BUN/Creatinine Ratio 19 (6-26); Bilirubin,Total 0.7 mg/dL (0.3-1.0); Blood Urea Nitrogen 15 mg/dL (8-23); Calcium 8.8 mg/dL (8.6-10.3); Carbon Dioxide 23 mEq/L (23-29); Chloride 102 mEq/L (98-107); Globulin 4.1 g/dL (2.4-3.5); Glucose 236 mg/dL (70-105); Osmolality,Calculated 282 (280-300); Potassium 4.6 mEq/L (3.5-5.1); Sodium 132 mEq/L (136-145); Total Protein 7.6 g/dL (6.4-8.9); eGFR For African Americans > 60 (> 60); eGFR For Non-African Americans > 60 (> 60)
[2021-07-30] MEDS: Insulin LISPRO 300 UNITS/3 ML VIAL SUBQ SCH ×4 (07:34→20:42)
[2021-07-30] MEDS: Gabapentin 400 MG CAPSULE PO SCH ×3 (08:50→20:41)
[2021-07-30] MEDS: lisinopriL 20 MG TABLET PO SCH (08:51)
[2021-07-30] MEDS: Multivit/Ca/Min/Fe/FA 1 TAB TABLET PO SCH (08:51)
[2021-07-30] MEDS: Cholecalciferol (D-3) 1,000 UNIT (25MCG) TABLET PO SCH (08:51)
[2021-07-30] MEDS: Aspirin 81 MG TAB.CHEW PO SCH (08:51)
[2021-07-30] MEDS: Loratadine 10 MG TABLET PO SCH (08:51)
[2021-07-30] MEDS: Heparin 25,000UNIT/250ML 1/2NS 25,000 UNIT/250 ML IV.SOLN IVC SCH (14:10)
[2021-07-30] MEDS: *HR* Rivaroxaban 15 MG TABLET PO SCH (18:23)
[2021-07-30] MEDS: DAPTOmycin 650 MG in 0.9 % Sodium Chloride 100 ML IVPB SCH (20:42)
[2021-07-30] MEDS: Acetaminophen 325 MG TABLET PO PRN (22:47)
[2021-07-31] MEDS: Morphine Sulfate 2 MG/ML SYRINGE IVP PRN ×2 (00:30→07:43)
[2021-07-31] MEDS: *HR* OxyCODONE Immed Rel 5 MG TABLET PO PRN ×3 (03:17→17:09)
[2021-07-31] MEDS: Cholecalciferol (D-3) 1,000 UNIT (25MCG) TABLET PO SCH (07:42)
[2021-07-31] MEDS: *HR* Rivaroxaban 15 MG TABLET PO SCH ×2 (07:42→16:37)
[2021-07-31] MEDS: Multivit/Ca/Min/Fe/FA 1 TAB TABLET PO SCH (07:42)
[2021-07-31] MEDS: Gabapentin 400 MG CAPSULE PO SCH ×2 (07:42→15:13)
[2021-07-31] MEDS: lisinopriL 20 MG TABLET PO SCH (07:42)
[2021-07-31] MEDS: Loratadine 10 MG TABLET PO SCH (07:42)
[2021-07-31] MEDS: Aspirin 81 MG TAB.CHEW PO SCH (07:42)
[2021-07-31] MEDS: Insulin LISPRO 300 UNITS/3 ML VIAL SUBQ SCH ×3 (07:44→17:10)
[2021-07-31] MEDS ORDERED: Morphine Sulfate 2 MG/ML SYRINGE IVP PRN (10:35)
[2021-07-31 14:49] VITALS: PULSE 101; TEMP 98.2; O2SAT 94
[2021-07-31 15:31] LABS: Influenza A PCR Negative (Negative); Influenza B PCR Negative (Negative); Resp. Syncytial Virus PCR Negative (Negative)
[2021-07-31 15:57] LABS: SARS-CoV-2 by PCR (In House) Negative (Negative)
[2021-07-31 16:36] VITALS: BP 107/63
[2021-07-31] MEDS ORDERED: HydrOXYzine SYP 10 MG/5 ML UDC PO ONE (18:50)
== END 2021-07-31 19:15 | disposition home health service (06) | DRG 474 ==
LOC: 4WAOSI → SUATTDRO 15:52
PROVIDERS: ADMIT Pharmacist; ATTEND Family Medicine

== ENCOUNTER 2021-08-14 17:41 | Inpatient (IN) ==
[2021-08-14] MEDS ORDERED: Morphine Sulfate 2 MG/ML SYRINGE IVP ONE (19:23)
[2021-08-14 19:53] LABS: Basophils # 0.1 K/mcL (0.0-0.2); Basophils % 0.7 %; Eosinophils # 0.3 K/mcL (0.0-0.6); Eosinophils % 3.9 %; Hematocrit 29.6 % (37.5-50.1); Hemoglobin 8.6 g/dL (12.9-16.9); Immature Granulocytes % 0.6 % (0-4); Lymphocytes # 1.9 K/mcL (0.6-4.6); Lymphocytes % 26.8 %; Mean Corpuscular HGB Conc 29.1 g/dL (31.6-35.5); Mean Corpuscular Hemoglobin 23.2 pg (28.0-33.3); Mean Corpuscular Volume 79.8 fL (83.0-100.0); Mean Platelet Volume 9.2 fL (9.4-12.4); Monocytes # 1.1 K/mcL (0.0-1.3); Monocytes % 15.1 %; Neutrophils # 3.8 K/mcL (1.6-8.9); Platelet Count 261 K/mcL (140-400); Red Blood Count 3.71 M/mcL (4.19-5.50); Red Cell Distribution Width 17.7 % (11.5-14.5); Segmented Neutrophils % 52.9 %; White Blood Count 7.2 K/mcL (4.3-11.1)
[2021-08-14 20:13] LABS: Alanine Aminotransferase 23 Units/L (7-52); Albumin 3.6 g/dL (3.5-5.7); Albumin/Globulin Ratio 0.9 (1.1-2.2); Alkaline Phosphatase 78 Units/L (34-104); Aspartate Amino Transferase 24 Units/L (13-39); BUN/Creatinine Ratio 24 (6-26); Bilirubin,Total 0.5 mg/dL (0.3-1.0); Blood Urea Nitrogen 24 mg/dL (8-23); C-Reactive Protein 52 mg/L (Less than 10); Calcium 9.3 mg/dL (8.6-10.3); Carbon Dioxide 29 mEq/L (23-29); Chloride 102 mEq/L (98-107); Globulin 3.9 g/dL (2.4-3.5); Glucose 131 mg/dL (70-105); Osmolality,Calculated 290 (280-300); Potassium 4.4 mEq/L (3.5-5.1); Sodium 137 mEq/L (136-145); Total Protein 7.5 g/dL (6.4-8.9); eGFR For African Americans > 60 (> 60); eGFR For Non-African Americans > 60 (> 60)
[2021-08-14] MEDS ORDERED: Melatonin 3 MG TABLET PO PRN (22:39)
[2021-08-14] MEDS ORDERED: Naloxone 0.4 MG/ML INJ IVP PRN (22:39)
[2021-08-14] MEDS ORDERED: Ondansetron ODT 4 MG TAB.RAPDIS SL PRN (22:39)
[2021-08-15] MEDS ORDERED: *HR* Dextrose 50 % in Water (Syg) 50 ML SYRINGE IVP PRN
[2021-08-15] MEDS ORDERED: D5% in Water 1,000 ML IVC PRN
[2021-08-15] MEDS ORDERED: Dextrose Gel 15 GM/37.5 ML TUBE PO PRN ×2
[2021-08-15] MEDS: methocarbamoL 500 MG TABLET PO SCH ×3 (00:01→18:05)
[2021-08-15] MEDS: Ketorolac 30 MG/ML VIAL IVP SCH ×4 (00:01→18:03)
[2021-08-15] MEDS: Aspirin 81 MG TAB.CHEW PO SCH ×2 (00:25→10:10)
[2021-08-15] MEDS: lisinopriL 20 MG TABLET PO SCH ×2 (00:26→10:10)
[2021-08-15] MEDS ORDERED: Gabapentin 400 MG CAPSULE PO SCH (00:30)
[2021-08-15] MEDS ORDERED: polyethylene glycoL 3350 17 GM POWD.PACK PO PRN (01:47)
[2021-08-15] MEDS ORDERED: Insulin DETEMIR 100 UNIT/ML X5UNITS SUBQ ONE (01:50)
[2021-08-15 08:41] LABS: Basophils # 0.1 K/mcL (0.0-0.2); Eosinophils # 0.2 K/mcL (0.0-0.6); Eosinophils % 4.6 %; Hematocrit 28.1 % (37.5-50.1); Hemoglobin 8.3 g/dL (12.9-16.9); Lymphocytes # 1.2 K/mcL (0.6-4.6); Lymphocytes % 23.5 %; Mean Corpuscular HGB Conc 29.5 g/dL (31.6-35.5); Mean Corpuscular Hemoglobin 23.4 pg (28.0-33.3); Mean Corpuscular Volume 79.2 fL (83.0-100.0); Monocytes # 0.7 K/mcL (0.0-1.3); Monocytes % 13.9 %; Neutrophils # 2.8 K/mcL (1.6-8.9); Platelet Count 220 K/mcL (140-400); Red Blood Count 3.55 M/mcL (4.19-5.50); Red Cell Distribution Width 17.4 % (11.5-14.5)
[2021-08-15 08:59] LABS: % Iron Saturation 6 % (20-55); BUN/Creatinine Ratio 25 (6-26); Blood Urea Nitrogen 22 mg/dL (8-23); Carbon Dioxide 29 mEq/L (23-29); Chloride 105 mEq/L (98-107); Glucose 117 mg/dL (70-105); Iron 22 mcg/dL (65-175); Osmolality,Calculated 290 (280-300); Potassium 4.3 mEq/L (3.5-5.1); Sodium 138 mEq/L (136-145); Transferrin 255 mg/dL (203-362); eGFR For African Americans > 60 (> 60); eGFR For Non-African Americans > 60 (> 60)
[2021-08-15] MEDS ORDERED: DAPTOmycin 500 MG VIAL IVP SCH (09:00)
[2021-08-15 09:02] LABS: C-Reactive Protein 50 mg/L (Less than 10)
[2021-08-15 09:30] LABS: Estimated Average Glucose 166 mg/dl; Hemoglobin A1C 7.4 %
[2021-08-15] MEDS: *HR* Rivaroxaban 15 MG TABLET PO SCH ×2 (10:10→21:50)
[2021-08-15] MEDS: Gabapentin 400 MG CAPSULE PO SCH ×3 (10:10→21:50)
[2021-08-15] MEDS: Lactobacillus 1 EACH CAP.SPRINK PO SCH (10:10)
[2021-08-15] MEDS: Insulin LISPRO 300 UNITS/3 ML VIAL SUBQ SCH ×4 (10:13→21:48)
[2021-08-15 11:18] LABS: Folate 18.1 ng/mL (3.0-16.0)
[2021-08-15] MEDS: DAPTOmycin 650 MG in 0.9 % Sodium Chloride 100 ML IVPB SCH (12:41)
[2021-08-15] MEDS: *HR* OxyCODONE Immed Rel 15 MG TABLET PO PRN ×2 (14:46→21:50)
[2021-08-15] MEDS ORDERED: Perflutren Lipid Microsphere 1.3 ML in 0.9 % Sodium Chloride 8.7 ML IVP PRN (15:34)
[2021-08-15] MEDS ORDERED: Iopamidol - 370 500 ML MLS IVP ONE (15:35)
[2021-08-15] MEDS: Cefepime HCl 2,000 MG in 0.9 % Sodium Chloride 10 ML IVP SCH (18:03)
[2021-08-16] MEDS: Cefepime HCl 2,000 MG in 0.9 % Sodium Chloride 10 ML IVP SCH ×3 (00:12→16:50)
[2021-08-16] MEDS: methocarbamoL 500 MG TABLET PO SCH ×3 (00:12→16:50)
[2021-08-16] MEDS: Ketorolac 30 MG/ML VIAL IVP SCH ×4 (00:12→16:51)
[2021-08-16] MEDS: *HR* OxyCODONE Immed Rel 15 MG TABLET PO PRN ×3 (03:45→16:50)
[2021-08-16 05:21] LABS: BUN/Creatinine Ratio 22 (6-26); Blood Urea Nitrogen 19 mg/dL (8-23); Calcium 8.7 mg/dL (8.6-10.3); Carbon Dioxide 28 mEq/L (23-29); Chloride 104 mEq/L (98-107); Glucose 274 mg/dL (70-105); Osmolality,Calculated 296 (280-300); Potassium 4.3 mEq/L (3.5-5.1); Sodium 137 mEq/L (136-145); eGFR For African Americans > 60 (> 60); eGFR For Non-African Americans > 60 (> 60)
[2021-08-16 05:29] LABS: Basophils % 0.9 %; Eosinophils # 0.3 K/mcL (0.0-0.6); Hematocrit 30.5 % (37.5-50.1); Hemoglobin 8.8 g/dL (12.9-16.9); Immature Granulocytes % 0.6 % (0-4); Immature Platelets 2.1 % (1.1-6.1); Mean Corpuscular HGB Conc 28.9 g/dL (31.6-35.5); Mean Corpuscular Hemoglobin 23.2 pg (28.0-33.3); Mean Corpuscular Volume 80.5 fL (83.0-100.0); Mean Platelet Volume 9.2 fL (9.4-12.4); Monocytes # 0.7 K/mcL (0.0-1.3); Monocytes % 14.7 %; Neutrophils # 2.6 K/mcL (1.6-8.9); Platelet Count 224 K/mcL (140-400); Red Blood Count 3.79 M/mcL (4.19-5.50); Red Cell Distribution Width 17.5 % (11.5-14.5); Segmented Neutrophils % 55.8 %; White Blood Count 4.6 K/mcL (4.3-11.1)
[2021-08-16 05:31] LABS: Anisocytosis 1+ (Not Present); Hypochromasia Present (Not Present); Platelet Estimate Normal (Normal)
[2021-08-16 08:05] LABS: C-Reactive Protein 46 mg/L (Less than 10)
[2021-08-16] MEDS ORDERED: Insulin DETEMIR 100 UNIT/ML X5UNITS SUBQ SCH (09:00)
[2021-08-16] MEDS: lisinopriL 20 MG TABLET PO SCH (09:54)
[2021-08-16] MEDS: Gabapentin 400 MG CAPSULE PO SCH ×2 (09:54→14:20)
[2021-08-16] MEDS: Lactobacillus 1 EACH CAP.SPRINK PO SCH (09:54)
[2021-08-16] MEDS: Aspirin 81 MG TAB.CHEW PO SCH (09:54)
[2021-08-16] MEDS: *HR* Rivaroxaban 15 MG TABLET PO SCH ×2 (09:55→21:00)
[2021-08-16] MEDS: Insulin LISPRO 300 UNITS/3 ML VIAL SUBQ SCH ×4 (09:55→21:13)
[2021-08-16] MEDS: Insulin DETEMIR 100 UNIT/ML X5UNITS SUBQ SCH ×2 (09:56→21:45)
[2021-08-16] MEDS: DAPTOmycin 650 MG in 0.9 % Sodium Chloride 100 ML IVPB SCH (10:00)
[2021-08-16] MEDS ORDERED: Gabapentin 300 MG CAPSULE PO SCH (15:00)
[2021-08-16] MEDS ORDERED: Acetaminophen IV 1,000 MG/100 ML BAG IVPB ONE (19:01)
[2021-08-16] MEDS: Gabapentin 300 MG CAPSULE PO SCH (21:00)
[2021-08-17] MEDS: Cefepime HCl 2,000 MG in 0.9 % Sodium Chloride 10 ML IVP SCH ×3 (00:05→14:56)
[2021-08-17] MEDS: methocarbamoL 500 MG TABLET PO SCH ×3 (00:05→16:37)
[2021-08-17] MEDS: *HR* OxyCODONE Immed Rel 15 MG TABLET PO PRN ×3 (00:05→12:51)
[2021-08-17] MEDS: Ketorolac 30 MG/ML VIAL IVP SCH (00:06)
[2021-08-17 06:09] LABS: Basophils % 0.7 %; Immature Granulocytes % 0.5 % (0-4); Mean Corpuscular HGB Conc 28.8 g/dL (31.6-35.5); Red Cell Distribution Width 17.2 % (11.5-14.5)
[2021-08-17 06:10] LABS: Eosinophils # 0.4 K/mcL (0.0-0.6); Eosinophils % 6.7 %; Hemoglobin 7.5 g/dL (12.9-16.9); Lymphocytes # 1.2 K/mcL (0.6-4.6); Lymphocytes % 21.4 %; Mean Corpuscular Hemoglobin 23.1 pg (28.0-33.3); Mean Corpuscular Volume 80.2 fL (83.0-100.0); Mean Platelet Volume 8.9 fL (9.4-12.4); Monocytes # 0.8 K/mcL (0.0-1.3); Monocytes % 14.3 %; Neutrophils # 3.3 K/mcL (1.6-8.9); Platelet Count 182 K/mcL (140-400); Red Blood Count 3.24 M/mcL (4.19-5.50); Segmented Neutrophils % 56.4 %; White Blood Count 5.8 K/mcL (4.3-11.1)
[2021-08-17 06:28] LABS: BUN/Creatinine Ratio 23 (6-26); Blood Urea Nitrogen 18 mg/dL (8-23); Calcium 8.5 mg/dL (8.6-10.3); Carbon Dioxide 26 mEq/L (23-29); Chloride 107 mEq/L (98-107); Glucose 209 mg/dL (70-105); Osmolality,Calculated 292 (280-300); Potassium 4.6 mEq/L (3.5-5.1); Sodium 137 mEq/L (136-145); eGFR For African Americans > 60 (> 60); eGFR For Non-African Americans > 60 (> 60)
[2021-08-17 06:48] LABS: Acanthocytes 1+ (Not Present); Hypochromasia Present (Not Present); Platelet Estimate Normal (Normal); Polychromasia 1+ (Not Present)
[2021-08-17] MEDS: Aspirin 81 MG TAB.CHEW PO SCH (08:34)
[2021-08-17] MEDS: lisinopriL 20 MG TABLET PO SCH (08:35)
[2021-08-17] MEDS: Gabapentin 300 MG CAPSULE PO SCH ×3 (08:35→20:58)
[2021-08-17] MEDS: Lactobacillus 1 EACH CAP.SPRINK PO SCH (08:35)
[2021-08-17] MEDS: *HR* Rivaroxaban 15 MG TABLET PO SCH ×2 (08:55→21:14)
[2021-08-17] MEDS: Insulin DETEMIR 100 UNIT/ML X5UNITS SUBQ SCH ×2 (08:55→20:58)
[2021-08-17] MEDS: DAPTOmycin 650 MG in 0.9 % Sodium Chloride 100 ML IVPB SCH (08:56)
[2021-08-17] MEDS: Insulin LISPRO 300 UNITS/3 ML VIAL SUBQ SCH ×4 (08:57→20:58)
[2021-08-17 09:07] LABS: C-Reactive Protein 59 mg/L (Less than 10)
[2021-08-17] MEDS ORDERED: Gadolinium Contrast Agent (WT Based) IV PRN (09:59)
[2021-08-17] MEDS: *HR* OxyCODONE/APAP 7.5/325 TABLET PO PRN (16:37)
[2021-08-17] MEDS: *HR* HYDROmorphone 2 MG/ML SYRINGE IVP PRN (21:55)
[2021-08-18] MEDS: *HR* OxyCODONE/APAP 7.5/325 TABLET PO PRN ×3 (00:33→20:01)
[2021-08-18] MEDS: methocarbamoL 500 MG TABLET PO SCH ×3 (00:33→14:33)
[2021-08-18] MEDS: Cefepime HCl 2,000 MG in 0.9 % Sodium Chloride 10 ML IVP SCH ×3 (00:44→14:33)
[2021-08-18 01:32] LABS: Basophils % 0.3 %; Eosinophils % 0.2 %; Hematocrit 27.3 % (37.5-50.1); Hemoglobin 8.1 g/dL (12.9-16.9); Immature Granulocytes % 1.7 % (0-4); Lymphocytes # 0.9 K/mcL (0.6-4.6); Lymphocytes % 13.4 %; Mean Corpuscular HGB Conc 29.7 g/dL (31.6-35.5); Mean Corpuscular Hemoglobin 23.5 pg (28.0-33.3); Mean Corpuscular Volume 79.4 fL (83.0-100.0); Mean Platelet Volume 9.2 fL (9.4-12.4); Monocytes # 0.1 K/mcL (0.0-1.3); Monocytes % 1.4 %; Neutrophils # 5.5 K/mcL (1.6-8.9); Nucleated Red Blood Cells 0.3 /100 WBC (0); Platelet Count 203 K/mcL (140-400); Red Blood Count 3.44 M/mcL (4.19-5.50); White Blood Count 6.6 K/mcL (4.3-11.1)
[2021-08-18 02:19] LABS: BUN/Creatinine Ratio 22 (6-26); Blood Urea Nitrogen 18 mg/dL (8-23); C-Reactive Protein 73 mg/L (Less than 10); Carbon Dioxide 24 mEq/L (23-29); Chloride 101 mEq/L (98-107); Glucose 334 mg/dL (70-105); Osmolality,Calculated 289 (280-300); Potassium 5.1 mEq/L (3.5-5.1); Sodium 132 mEq/L (136-145); eGFR For African Americans > 60 (> 60); eGFR For Non-African Americans > 60 (> 60)
[2021-08-18] MEDS: *HR* HYDROmorphone 2 MG/ML SYRINGE IVP PRN ×2 (04:30→22:26)
[2021-08-18] MEDS: Lactobacillus 1 EACH CAP.SPRINK PO SCH (09:34)
[2021-08-18] MEDS: Aspirin 81 MG TAB.CHEW PO SCH (09:35)
[2021-08-18] MEDS: *HR* Rivaroxaban 15 MG TABLET PO SCH ×2 (09:35→20:01)
[2021-08-18] MEDS: Gabapentin 300 MG CAPSULE PO SCH ×3 (09:35→20:01)
[2021-08-18] MEDS: lisinopriL 20 MG TABLET PO SCH (09:35)
[2021-08-18] MEDS: Insulin DETEMIR 100 UNIT/ML X5UNITS SUBQ SCH ×2 (09:37→20:20)
[2021-08-18] MEDS: Insulin LISPRO 300 UNITS/3 ML VIAL SUBQ SCH ×4 (09:38→20:08)
[2021-08-18] MEDS: DAPTOmycin 650 MG in 0.9 % Sodium Chloride 100 ML IVPB SCH (14:34)
[2021-08-18] MEDS: Ibuprofen 800 MG TABLET PO SCH (17:07)
[2021-08-19] MEDS: Ibuprofen 800 MG TABLET PO SCH ×4 (00:19→23:39)
[2021-08-19] MEDS: Cefepime HCl 2,000 MG in 0.9 % Sodium Chloride 10 ML IVP SCH ×4 (00:19→23:39)
[2021-08-19] MEDS: methocarbamoL 500 MG TABLET PO SCH ×4 (00:19→23:39)
[2021-08-19] MEDS: *HR* HYDROmorphone 2 MG/ML SYRINGE IVP PRN ×3 (02:31→21:42)
[2021-08-19] MEDS: *HR* OxyCODONE/APAP 7.5/325 TABLET PO PRN ×3 (04:43→23:40)
[2021-08-19 05:10] LABS: Basophils % 0.5 %; Eosinophils # 0.2 K/mcL (0.0-0.6); Eosinophils % 1.9 %; Hematocrit 26.3 % (37.5-50.1); Hemoglobin 7.7 g/dL (12.9-16.9); Immature Granulocytes % 0.9 % (0-4); Lymphocytes # 1.9 K/mcL (0.6-4.6); Lymphocytes % 23.3 %; Mean Corpuscular HGB Conc 29.3 g/dL (31.6-35.5); Mean Corpuscular Hemoglobin 23.3 pg (28.0-33.3); Mean Corpuscular Volume 79.5 fL (83.0-100.0); Mean Platelet Volume 9.3 fL (9.4-12.4); Monocytes # 0.7 K/mcL (0.0-1.3); Neutrophils # 5.4 K/mcL (1.6-8.9); Platelet Count 188 K/mcL (140-400); Red Blood Count 3.31 M/mcL (4.19-5.50); Red Cell Distribution Width 16.9 % (11.5-14.5); Segmented Neutrophils % 65.4 %; White Blood Count 8.2 K/mcL (4.3-11.1)
[2021-08-19 05:27] LABS: BUN/Creatinine Ratio 26 (6-26); Blood Urea Nitrogen 24 mg/dL (8-23); Calcium 8.6 mg/dL (8.6-10.3); Carbon Dioxide 25 mEq/L (23-29); Chloride 106 mEq/L (98-107); Glucose 301 mg/dL (70-105); Osmolality,Calculated 297 (280-300); Potassium 4.5 mEq/L (3.5-5.1); Sodium 136 mEq/L (136-145); eGFR For African Americans > 60 (> 60); eGFR For Non-African Americans > 60 (> 60)
[2021-08-19] MEDS: Gabapentin 300 MG CAPSULE PO SCH ×3 (10:34→21:42)
[2021-08-19] MEDS: lisinopriL 20 MG TABLET PO SCH (10:34)
[2021-08-19] MEDS: DAPTOmycin 650 MG in 0.9 % Sodium Chloride 100 ML IVPB SCH (10:35)
[2021-08-19] MEDS: Aspirin 81 MG TAB.CHEW PO SCH (10:35)
[2021-08-19] MEDS: Insulin DETEMIR 100 UNIT/ML X5UNITS SUBQ SCH ×2 (10:35→21:42)
[2021-08-19] MEDS: Lactobacillus 1 EACH CAP.SPRINK PO SCH (10:35)
[2021-08-19] MEDS: Insulin LISPRO 300 UNITS/3 ML VIAL SUBQ SCH ×4 (10:36→21:23)
[2021-08-19] MEDS ORDERED: Insulin LISPRO 300 UNITS/3 ML VIAL SUBQ SCH (12:57)
[2021-08-19 21:20] LABS: C-Reactive Protein 34 mg/L (Less than 10)
[2021-08-20] MEDS: *HR* HYDROmorphone 2 MG/ML SYRINGE IVP PRN ×3 (04:05→19:46)
[2021-08-20 04:45] LABS: Red Cell Distribution Width 17.1 % (11.5-14.5)
[2021-08-20 04:47] LABS: Hematocrit 27.6 % (37.5-50.1); Hemoglobin 7.9 g/dL (12.9-16.9); Mean Corpuscular HGB Conc 28.6 g/dL (31.6-35.5); Mean Corpuscular Hemoglobin 22.6 pg (28.0-33.3); Mean Corpuscular Volume 78.9 fL (83.0-100.0); Mean Platelet Volume 9.4 fL (9.4-12.4); Platelet Count 204 K/mcL (140-400); White Blood Count 7.6 K/mcL (4.3-11.1)
[2021-08-20 05:05] LABS: BUN/Creatinine Ratio 24 (6-26); Blood Urea Nitrogen 21 mg/dL (8-23); Calcium 8.5 mg/dL (8.6-10.3); Carbon Dioxide 28 mEq/L (23-29); Chloride 104 mEq/L (98-107); Glucose 224 mg/dL (70-105); Osmolality,Calculated 292 (280-300); Potassium 4.3 mEq/L (3.5-5.1); Sodium 136 mEq/L (136-145); eGFR For African Americans > 60 (> 60); eGFR For Non-African Americans > 60 (> 60)
[2021-08-20] MEDS: Insulin LISPRO 300 UNITS/3 ML VIAL SUBQ SCH ×4 (08:06→19:49)
[2021-08-20] MEDS: Cefepime HCl 2,000 MG in 0.9 % Sodium Chloride 10 ML IVP SCH ×2 (08:13→16:30)
[2021-08-20] MEDS: Lactobacillus 1 EACH CAP.SPRINK PO SCH (08:15)
[2021-08-20] MEDS: Aspirin 81 MG TAB.CHEW PO SCH (08:15)
[2021-08-20] MEDS: methocarbamoL 500 MG TABLET PO SCH ×2 (08:15→16:30)
[2021-08-20] MEDS: lisinopriL 20 MG TABLET PO SCH (08:15)
[2021-08-20] MEDS: Gabapentin 300 MG CAPSULE PO SCH ×3 (08:15→19:48)
[2021-08-20] MEDS: Ibuprofen 800 MG TABLET PO SCH ×2 (08:15→16:29)
[2021-08-20] MEDS: DAPTOmycin 650 MG in 0.9 % Sodium Chloride 100 ML IVPB SCH (08:57)
[2021-08-20] MEDS: Insulin DETEMIR 100 UNIT/ML X5UNITS SUBQ SCH ×2 (08:59→19:49)
[2021-08-20] MEDS ORDERED: Lidocaine Viscous Oral Soln 15 ML SOLUTION MM PRN (10:03)
[2021-08-20] MEDS ORDERED: *HR* FentaNYL (PF) 100 MCG/2 ML VIAL IVP PRN (10:03)
[2021-08-20] MEDS ORDERED: *HR* Midazolam HCl 5 MG/5 ML VIAL IVP PRN (10:04)
[2021-08-20] MEDS ORDERED: 0.9 % Sodium Chloride 500 ML IVC ONE (10:04)
[2021-08-20] MEDS ORDERED: Lidocaine -MPF 1% 5 ML AMPUL INFILT ONE (14:17)
[2021-08-20] MEDS: *HR* OxyCODONE/APAP 7.5/325 TABLET PO PRN (16:30)
[2021-08-21] MEDS: Cefepime HCl 2,000 MG in 0.9 % Sodium Chloride 10 ML IVP SCH ×4 (00:35→23:22)
[2021-08-21] MEDS: methocarbamoL 500 MG TABLET PO SCH ×4 (00:36→23:22)
[2021-08-21] MEDS: *HR* OxyCODONE/APAP 7.5/325 TABLET PO PRN (00:36)
[2021-08-21] MEDS: Ibuprofen 800 MG TABLET PO SCH ×4 (00:36→23:22)
[2021-08-21] MEDS: *HR* HYDROmorphone 2 MG/ML SYRINGE IVP PRN ×2 (02:03→07:20)
[2021-08-21 05:03] LABS: Hemoglobin 7.8 g/dL (12.9-16.9); Mean Corpuscular HGB Conc 28.9 g/dL (31.6-35.5); Mean Corpuscular Hemoglobin 22.7 pg (28.0-33.3); Mean Corpuscular Volume 78.7 fL (83.0-100.0); Mean Platelet Volume 9.4 fL (9.4-12.4); Platelet Count 199 K/mcL (140-400); Red Blood Count 3.43 M/mcL (4.19-5.50); Red Cell Distribution Width 16.9 % (11.5-14.5); White Blood Count 7.3 K/mcL (4.3-11.1)
[2021-08-21 05:20] LABS: BUN/Creatinine Ratio 21 (6-26); Blood Urea Nitrogen 17 mg/dL (8-23); Calcium 8.7 mg/dL (8.6-10.3); Carbon Dioxide 27 mEq/L (23-29); Chloride 104 mEq/L (98-107); Glucose 195 mg/dL (70-105); Osmolality,Calculated 289 (280-300); Potassium 4.2 mEq/L (3.5-5.1); Sodium 136 mEq/L (136-145); eGFR For African Americans > 60 (> 60); eGFR For Non-African Americans > 60 (> 60)
[2021-08-21] MEDS: Insulin LISPRO 300 UNITS/3 ML VIAL SUBQ SCH ×4 (07:57→20:33)
[2021-08-21] MEDS: lisinopriL 20 MG TABLET PO SCH (08:22)
[2021-08-21] MEDS: *HR* OxyCODONE/APAP 10/325 TABLET PO PRN ×3 (08:22→20:32)
[2021-08-21] MEDS: Gabapentin 300 MG CAPSULE PO SCH ×4 (08:22→20:33)
[2021-08-21] MEDS: Lactobacillus 1 EACH CAP.SPRINK PO SCH (08:22)
[2021-08-21] MEDS: Aspirin 81 MG TAB.CHEW PO SCH (08:23)
[2021-08-21] MEDS: Insulin DETEMIR 100 UNIT/ML X5UNITS SUBQ SCH ×2 (08:38→20:33)
[2021-08-21] MEDS: DAPTOmycin 650 MG in 0.9 % Sodium Chloride 100 ML IVPB SCH (08:44)
[2021-08-22] MEDS: *HR* OxyCODONE/APAP 10/325 TABLET PO PRN ×2 (02:33→08:41)
[2021-08-22 03:29] VITALS: TEMP 97.9
[2021-08-22] MEDS: Gabapentin 300 MG CAPSULE PO SCH (05:23)
[2021-08-22 07:10] LABS: Hematocrit 26.7 % (37.5-50.1); Hemoglobin 7.7 g/dL (12.9-16.9); Mean Corpuscular HGB Conc 28.8 g/dL (31.6-35.5); Mean Corpuscular Hemoglobin 22.3 pg (28.0-33.3); Mean Corpuscular Volume 77.4 fL (83.0-100.0); Mean Platelet Volume 9.2 fL (9.4-12.4); Platelet Count 192 K/mcL (140-400); Red Blood Count 3.45 M/mcL (4.19-5.50); Red Cell Distribution Width 16.7 % (11.5-14.5); White Blood Count 5.7 K/mcL (4.3-11.1)
[2021-08-22 07:13] VITALS: BP 149/77; PULSE 83; O2SAT 91
[2021-08-22 07:39] LABS: BUN/Creatinine Ratio 23 (6-26); Blood Urea Nitrogen 18 mg/dL (8-23); Calcium 8.8 mg/dL (8.6-10.3); Carbon Dioxide 25 mEq/L (23-29); Chloride 104 mEq/L (98-107); Glucose 252 mg/dL (70-105); Osmolality,Calculated 292 (280-300); Potassium 4.1 mEq/L (3.5-5.1); Sodium 136 mEq/L (136-145); eGFR For African Americans > 60 (> 60); eGFR For Non-African Americans > 60 (> 60)
[2021-08-22] MEDS: Aspirin 81 MG TAB.CHEW PO SCH (08:41)
[2021-08-22] MEDS: lisinopriL 20 MG TABLET PO SCH (08:41)
[2021-08-22] MEDS: Lactobacillus 1 EACH CAP.SPRINK PO SCH (08:41)
[2021-08-22] MEDS: methocarbamoL 500 MG TABLET PO SCH (08:41)
[2021-08-22] MEDS: Ibuprofen 800 MG TABLET PO SCH (08:42)
[2021-08-22] MEDS: Insulin LISPRO 300 UNITS/3 ML VIAL SUBQ SCH (08:46)
[2021-08-22] MEDS: Cefepime HCl 2,000 MG in 0.9 % Sodium Chloride 10 ML IVP SCH (08:47)
[2021-08-22] MEDS: DAPTOmycin 650 MG in 0.9 % Sodium Chloride 100 ML IVPB SCH (09:27)
[2021-08-22] MEDS: Insulin DETEMIR 100 UNIT/ML X5UNITS SUBQ SCH (09:27)
== END 2021-08-22 11:42 | disposition home health service (06) | DRG 637 ==
LOC: 4WAOSI 17:41 → EMEROOARM 17:41 → 4WAOSI 22:21 → SUATTDRO 22:38 → 4WAOSI 23:38
PROVIDERS: ADMIT Internal Medicine; ATTEND Pharmacist

== ENCOUNTER 2021-09-04 16:09 | Observation (INO) ==
[2021-09-04 17:23] LABS: Albumin 3.9 g/dL (3.5-5.7); Albumin/Globulin Ratio 0.9 (1.1-2.2); Bilirubin,Total 0.4 mg/dL (0.3-1.0); Calcium 10.5 mg/dL (8.6-10.3); Globulin 4.3 g/dL (2.4-3.5); Potassium 5.4 mEq/L (3.5-5.1); Total Protein 8.2 g/dL (6.4-8.9)
[2021-09-04] MEDS ORDERED: 0.9 % Sodium Chloride 1,000 ML IVC ONE (17:25)
[2021-09-04 17:46] LABS: Basophils # 0.1 K/mcL (0.0-0.2); Basophils % 1.1 %; Eosinophils # 0.4 K/mcL (0.0-0.6); Eosinophils % 4.9 %; Hematocrit 34.9 % (37.5-50.1); Hemoglobin 10.2 g/dL (12.9-16.9); Immature Granulocytes % 0.5 % (0-4); Lymphocytes # 1.7 K/mcL (0.6-4.6); Lymphocytes % 20.9 %; Mean Corpuscular HGB Conc 29.2 g/dL (31.6-35.5); Mean Corpuscular Hemoglobin 21.8 pg (28.0-33.3); Mean Corpuscular Volume 74.6 fL (83.0-100.0); Mean Platelet Volume 9.6 fL (9.4-12.4); Monocytes # 0.7 K/mcL (0.0-1.3); Monocytes % 8.9 %; Neutrophils # 5.2 K/mcL (1.6-8.9); Platelet Count 328 K/mcL (140-400); Red Blood Count 4.68 M/mcL (4.19-5.50); Red Cell Distribution Width 16.7 % (11.5-14.5); Segmented Neutrophils % 63.7 %; White Blood Count 8.2 K/mcL (4.3-11.1)
[2021-09-04 17:47] LABS: Platelet Estimate Normal (Normal)
[2021-09-04 17:57] LABS: Magnesium 1.8 mg/dL (1.6-2.6)
[2021-09-04 20:53] LABS: Bilirubin,Urine Negative (Negative); Blood,Urine Small (Negative); Clarity,Urine Clear (Clear); Color,Urine Light-Yellow (Yellow); Glucose,Urine (UA) Normal (Normal); Ketones,Urine Negative (Negative); Leukocyte Esterase,Urine Negative (Negative); Mucus,Urine Few per lpf (None-Few); Nitrite,Urine Negative (Negative); PH,Urine 5.5 pH Units (5.0-8.0); Protein,Urine 30 mg/dL (Neg-Trace); RBC,Urine 0-3 per hpf (0-3); Specific Gravity,Urine 1.014 (1.010-1.025); Urobilinogen,Urine Normal (Normal); WBC,Urine 0-3 per hpf (0-3)
[2021-09-04] MEDS ORDERED: Ondansetron 4 MG/2 ML VIAL IVP PRN (22:42)
[2021-09-04] MEDS ORDERED: Melatonin 3 MG TABLET PO PRN (22:42)
[2021-09-04] MEDS ORDERED: Naloxone 0.4 MG/ML INJ IVP PRN (22:42)
[2021-09-04] MEDS ORDERED: 0.9 % Sodium Chloride 1,000 ML IVC SCH (22:45)
[2021-09-04] MEDS ORDERED: Dextrose Gel 15 GM/37.5 ML TUBE PO PRN ×2 (22:49)
[2021-09-04] MEDS ORDERED: D5% in Water 1,000 ML IVC PRN (22:49)
[2021-09-04] MEDS ORDERED: *HR* Dextrose 50 % in Water (Syg) 50 ML SYRINGE IVP PRN (22:49)
[2021-09-05] MEDS: Insulin LISPRO 300 UNITS/3 ML VIAL SUBQ SCH ×4 (00:50→16:28)
[2021-09-05 01:27] LABS: Creatinine,Urine 45 mg/dL; Sodium, Urine < 10.0 mEq/L
[2021-09-05 05:52] LABS: Hemoglobin 10.1 g/dL (12.9-16.9); Mean Corpuscular HGB Conc 29.7 g/dL (31.6-35.5); Mean Corpuscular Hemoglobin 22.1 pg (28.0-33.3); Mean Corpuscular Volume 74.6 fL (83.0-100.0); Mean Platelet Volume 9.5 fL (9.4-12.4); Platelet Count 280 K/mcL (140-400); Red Blood Count 4.56 M/mcL (4.19-5.50); Red Cell Distribution Width 16.8 % (11.5-14.5); White Blood Count 8.2 K/mcL (4.3-11.1)
[2021-09-05 09:53] LABS: BUN/Creatinine Ratio 32 (6-26); Blood Urea Nitrogen 35 mg/dL (8-23); Calcium 10.4 mg/dL (8.6-10.3); Carbon Dioxide 23 mEq/L (23-29); Chloride 104 mEq/L (98-107); Glucose 104 mg/dL (70-105); Osmolality,Calculated 292 (280-300); Potassium 4.6 mEq/L (3.5-5.1); Sodium 137 mEq/L (136-145); eGFR For African Americans > 60 (> 60); eGFR For Non-African Americans > 60 (> 60)
[2021-09-05 11:18] LABS: INR 1.4; Prothrombin Time 15.3 Seconds (9.4-12.1)
[2021-09-05 12:02] LABS: Uric Acid 6.5 mg/dL (2.3-7.6)
[2021-09-05] MEDS ORDERED: *HR* LORazepam 2 MG/ML VIAL IVP PRN ×2 (12:03→13:41)
[2021-09-05] MEDS: Aspirin Enteric Coated 81 MG Tablet PO SCH (17:28)
[2021-09-06] MEDS ORDERED: Acetaminophen 325 MG TABLET PO ONE (06:43)
[2021-09-06 07:22] LABS: Basophils # 0.1 K/mcL (0.0-0.2); Basophils % 0.8 %; Eosinophils # 0.2 K/mcL (0.0-0.6); Eosinophils % 2.8 %; Hematocrit 35.4 % (37.5-50.1); Hemoglobin 10.7 g/dL (12.9-16.9); Immature Granulocytes % 0.3 % (0-4); Lymphocytes # 1.8 K/mcL (0.6-4.6); Lymphocytes % 25.7 %; Mean Corpuscular HGB Conc 30.2 g/dL (31.6-35.5); Mean Corpuscular Hemoglobin 22.2 pg (28.0-33.3); Mean Corpuscular Volume 73.4 fL (83.0-100.0); Mean Platelet Volume 9.9 fL (9.4-12.4); Monocytes # 0.9 K/mcL (0.0-1.3); Monocytes % 12.2 %; Neutrophils # 4.1 K/mcL (1.6-8.9); Platelet Count 296 K/mcL (140-400); Red Blood Count 4.82 M/mcL (4.19-5.50); Segmented Neutrophils % 58.2 %; White Blood Count 7.1 K/mcL (4.3-11.1)
[2021-09-06 07:44] LABS: Alanine Aminotransferase 28 Units/L (7-52); Albumin 4.1 g/dL (3.5-5.7); Alkaline Phosphatase 118 Units/L (34-104); Aspartate Amino Transferase 28 Units/L (13-39); BUN/Creatinine Ratio 25 (6-26); Bilirubin,Total 0.5 mg/dL (0.3-1.0); Blood Urea Nitrogen 24 mg/dL (8-23); Calcium 10.6 mg/dL (8.6-10.3); Carbon Dioxide 23 mEq/L (23-29); Chloride 104 mEq/L (98-107); Globulin 4.2 g/dL (2.4-3.5); Glucose 119 mg/dL (70-105); Osmolality,Calculated 291 (280-300); Potassium 4.1 mEq/L (3.5-5.1); Sodium 138 mEq/L (136-145); Total Protein 8.3 g/dL (6.4-8.9); eGFR For African Americans > 60 (> 60); eGFR For Non-African Americans > 60 (> 60)
[2021-09-06] MEDS: Insulin LISPRO 300 UNITS/3 ML VIAL SUBQ SCH ×2 (07:48→13:31)
[2021-09-06] MEDS: Aspirin Enteric Coated 81 MG Tablet PO SCH (07:58)
[2021-09-06 08:49] LABS: Folate 18.9 ng/mL (3.0-16.0)
[2021-09-06 11:01] VITALS: BP 138/81; PULSE 93; TEMP 98.6; O2SAT 97
[2021-09-06 12:19] LABS: Estimated Average Glucose 166 mg/dl; Hemoglobin A1C 7.4 %
[2021-09-06] MEDS ORDERED: *HR* OxyCODONE/APAP 7.5/325 TABLET PO ONE (12:51)
[2021-09-06] MEDS ORDERED: DAPTOmycin 650 MG in 0.9 % Sodium Chloride 100 ML IVPB SCH (13:00)
== END 2021-09-06 15:03 | disposition home health service (06) ==
LOC: EMEROOARM 16:09 → 2ANU 16:09 → SUATTDRO 21:32 → 2ANU 22:22
PROVIDERS: ADMIT Student in an Organized Health Care Education/Training Program; ATTEND Internal Medicine

== ENCOUNTER 2021-11-29 18:02 | Inpatient (IN) ==
[2021-11-29] MEDS ORDERED: 0.9 % Sodium Chloride 1,000 ML IVC ONE (18:46)
[2021-11-29 19:30] LABS: Basophils % 0.4 %; Eosinophils # 0.2 K/mcL (0.0-0.6); Eosinophils % 2.3 %; Hematocrit 35.4 % (37.5-50.1); Hemoglobin 10.7 g/dL (12.9-16.9); Immature Granulocytes % 0.3 % (0-4); Mean Corpuscular HGB Conc 30.2 g/dL (31.6-35.5); Mean Corpuscular Hemoglobin 23.5 pg (28.0-33.3); Mean Corpuscular Volume 77.8 fL (83.0-100.0); Mean Platelet Volume 9.2 fL (9.4-12.4); Monocytes # 1.5 K/mcL (0.0-1.3); Monocytes % 14.8 %; Neutrophils # 7.4 K/mcL (1.6-8.9); Platelet Count 200 K/mcL (140-400); Red Blood Count 4.55 M/mcL (4.19-5.50); Red Cell Distribution Width 20.3 % (11.5-14.5); Segmented Neutrophils % 72.2 %; White Blood Count 10.3 K/mcL (4.3-11.1)
[2021-11-29 19:38] LABS: INR 1.2; Prothrombin Time 13.7 Seconds (9.4-12.1)
[2021-11-29 19:41] LABS: Activated Partial Thrombo Time 35.6 Seconds (26.0-36.0)
[2021-11-29 20:20] LABS: Alanine Aminotransferase 51 Units/L (7-52); Albumin 4.2 g/dL (3.5-5.7); Albumin/Globulin Ratio 1.1 (1.1-2.2); Alkaline Phosphatase 84 Units/L (34-104); Aspartate Amino Transferase 108 Units/L (13-39); BUN/Creatinine Ratio 17 (6-26); Bilirubin,Direct 0.1 mg/dL (0.0-0.2); Bilirubin,Indirect 0.5 mg/dL (0.0-1.0); Bilirubin,Total 0.6 mg/dL (0.3-1.0); Blood Urea Nitrogen 83 mg/dL (8-23); Calcium 9.6 mg/dL (8.6-10.3); Carbon Dioxide 23 mEq/L (23-29); Chloride 94 mEq/L (98-107); Creatine Kinase 3015 Units/L (30-223); Ethanol < 10 mg/dL (Less than 10); Globulin 3.8 g/dL (2.4-3.5); Glucose 105 mg/dL (70-105); Osmolality,Calculated 309 (280-300); Potassium 4.5 mEq/L (3.5-5.1); Sodium 137 mEq/L (136-145); Thyroid Stimulating Hormone 1.138 mcIU/mL (0.340-5.600); Troponin I < 0.03 ng/mL (< 0.04)
[2021-11-29] MEDS ORDERED: Ondansetron 4 MG/2 ML VIAL IVP PRN (21:46)
[2021-11-29] MEDS ORDERED: Naloxone 0.4 MG/ML INJ IVP PRN (21:46)
[2021-11-29] MEDS ORDERED: Acetaminophen 325 MG TABLET PO PRN (21:46)
[2021-11-29] MEDS: 0.9 % Sodium Chloride 1,000 ML IVC SCH (22:21)
[2021-11-29] MEDS ORDERED: *HR* Dextrose 50 % in Water (Syg) 50 ML SYRINGE IVP PRN (22:42)
[2021-11-29] MEDS ORDERED: D5% in Water 1,000 ML IVC PRN (22:42)
[2021-11-29] MEDS ORDERED: Dextrose Gel 15 GM/37.5 ML TUBE PO PRN ×2 (22:42)
[2021-11-30 00:17] LABS: Creatinine,Urine 121 mg/dL; Protein/Creatinine Ratio,Urine 0.58 mg/mg (0.00-0.20); Sodium, Urine 67.7 mEq/L
[2021-11-30 00:36] LABS: Bacteria,Urine Few per hpf (None-Few); Bilirubin,Urine Negative (Negative); Blood,Urine Large (Negative); Clarity,Urine Clear (Clear); Color,Urine Yellow (Yellow); Glucose,Urine (UA) Normal (Normal); Hyaline Casts,Urine Moderate per lpf (None Seen); Ketones,Urine Trace mg/dL (Negative); Leukocyte Esterase,Urine Negative (Negative); Mucus,Urine Few per lpf (None-Few); Nitrite,Urine Negative (Negative); PH,Urine 5.5 pH Units (5.0-8.0); Protein,Urine 30 mg/dL (Neg-Trace); RBC,Urine 0-3 per hpf (0-3); Specific Gravity,Urine 1.017 (1.010-1.025); Squamous Epithelial Cell,Urine Few per hpf (None-Few); Urobilinogen,Urine Normal (Normal)
[2021-11-30 00:51] LABS: Amphetamine Screen,Urine Negative ng/mL (Cutoff=1000); Barbiturate Screen,Urine Negative ng/mL (Cutoff=200); Benzodiazepines Screen,Urine Negative ng/mL (Cutoff=200); Cannabinoid Screen,Urine Negative ng/mL (Cutoff = 50); Cocaine Screen,Urine Negative ng/mL (Cutoff= 300); Opiate Screen,Urine Positive ng/mL (Cutoff=300); Phencyclidine Screen,Urine Negative ng/mL (Cutoff=25)
[2021-11-30] MEDS: 0.9 % Sodium Chloride 1,000 ML IVC SCH ×5 (01:59→21:42)
[2021-11-30 02:14] LABS: Hematocrit 30.7 % (37.5-50.1); Hemoglobin 9.5 g/dL (12.9-16.9); Mean Corpuscular HGB Conc 30.9 g/dL (31.6-35.5); Mean Corpuscular Hemoglobin 23.6 pg (28.0-33.3); Mean Corpuscular Volume 76.4 fL (83.0-100.0); Mean Platelet Volume 9.9 fL (9.4-12.4); Platelet Count 164 K/mcL (140-400); Red Blood Count 4.02 M/mcL (4.19-5.50); White Blood Count 8.2 K/mcL (4.3-11.1)
[2021-11-30 03:18] LABS: Calcium 8.9 mg/dL (8.6-10.3); Potassium 3.9 mEq/L (3.5-5.1)
[2021-11-30] MEDS: Insulin LISPRO 300 UNITS/3 ML VIAL SUBQ SCH ×3 (08:14→17:11)
[2021-11-30 13:31] LABS: Complement C3 138 mg/dL (87-200)
[2021-11-30] MEDS: *HR* Heparin 5,000 UNIT/ML VIAL SQ SCH (17:11)
[2021-11-30] MEDS: Haloperidol Lactate 5 MG/ML VIAL IVP PRN (18:19)
[2021-12-01] MEDS: Haloperidol Lactate 5 MG/ML VIAL IVP PRN (01:18)
[2021-12-01] MEDS: 0.9 % Sodium Chloride 1,000 ML IVC SCH ×2 (01:47→07:40)
[2021-12-01 02:37] LABS: BUN/Creatinine Ratio 30 (6-26); Blood Urea Nitrogen 27 mg/dL (8-23); Calcium 8.6 mg/dL (8.6-10.3); Carbon Dioxide 27 mEq/L (23-29); Chloride 109 mEq/L (98-107); Creatine Kinase 1682 Units/L (30-223); Glucose 111 mg/dL (70-105); Osmolality,Calculated 302 (280-300); Potassium 3.7 mEq/L (3.5-5.1); Sodium 143 mEq/L (136-145)
[2021-12-01 03:17] LABS: Hepatitis B Surface Antigen Nonreactive (Nonreactive)
[2021-12-01 03:45] LABS: Hepatitis B Core IgM Nonreactive (Nonreactive)
[2021-12-01 03:47] LABS: Hepatitis A Antibody IgM Nonreactive (Nonreactive)
[2021-12-01 04:06] VITALS: TEMP 98.6
[2021-12-01] MEDS: *HR* Heparin 5,000 UNIT/ML VIAL SQ SCH (05:11)
[2021-12-01] MEDS ORDERED: methocarbamoL 750 MG TABLET PO PRN (07:27)
[2021-12-01] MEDS ORDERED: *HR* OxyCODONE/APAP 10/325 TABLET PO PRN (07:27)
[2021-12-01 07:36] LABS: Hepatitis C Virus Antibody Reactive (Nonreactive)
[2021-12-01 07:37] VITALS: BP 146/80; PULSE 63; O2SAT 99
[2021-12-01] MEDS: Insulin LISPRO 300 UNITS/3 ML VIAL SUBQ SCH (07:46)
[2021-12-01] MEDS ORDERED: *HR* Metformin 500 MG TABLET PO SCH (08:00)
[2021-12-01] MEDS ORDERED: Aspirin Enteric Coated 81 MG Tablet PO SCH (09:00)
[2021-12-01] MEDS ORDERED: Gabapentin 400 MG CAPSULE PO SCH (09:00)
[2021-12-02 00:28] LABS: Amphetamines NEGATIVE ng/mL (Cutoff 20); Barbiturates NEGATIVE ng/mL (Cutoff 50); Benzodiazepines NEGATIVE ng/mL (Cutoff 50); Buprenorphine NEGATIVE ng/mL (Cutoff 1); Cocaine NEGATIVE ng/mL (Cutoff 20); Methadone NEGATIVE ng/mL (Cutoff 25); Methamphetamines NEGATIVE ng/mL (Cutoff 20); Opiates NEGATIVE ng/mL (Cutoff 20); Phencyclidine NEGATIVE ng/mL (Cutoff 10)
[2021-12-03 12:42] LABS: Hydrocodone Confirmation <2 ng/mL
[2021-12-04 10:49] LABS: 6_Acetylmorphine Confirmation <2 ng/mL; Oxymorphone Confirmation <2 ng/mL
[2021-12-04 10:51] LABS: Kappa Qnt Free Light Chains 31.13 mg/L (3.30-19.40); Lambda Qnt Free Light Chains 24.82 mg/L (5.71-26.30)
[2021-12-04 10:57] LABS: ANA IgG by ELISA NONE DETECTED (None Detected)
== END 2021-12-01 12:40 | disposition home or self-care (01) | DRG 682 ==
LOC: EMEROOARM 18:02 → 3NENU 18:02 → SUATTDRO 22:31 → 3NENU 23:05
PROVIDERS: ADMIT Student in an Organized Health Care Education/Training Program; ATTEND Internal Medicine

== ENCOUNTER 2021-12-27 08:52 | Inpatient (IN) ==
[2021-12-27 09:13] LABS: Basophils % 0.5 %; Eosinophils # 0.4 K/mcL (0.0-0.6); Eosinophils % 5.3 %; Hemoglobin 9.2 g/dL (12.9-16.9); Immature Granulocytes % 0.3 % (0-4); Lymphocytes # 1.6 K/mcL (0.6-4.6); Lymphocytes % 23.9 %; Mean Corpuscular HGB Conc 31.7 g/dL (31.6-35.5); Mean Corpuscular Hemoglobin 26.2 pg (28.0-33.3); Mean Platelet Volume 8.4 fL (9.4-12.4); Monocytes # 0.9 K/mcL (0.0-1.3); Monocytes % 13.6 %; Neutrophils # 3.7 K/mcL (1.6-8.9); Platelet Count 143 K/mcL (140-400); Red Blood Count 3.51 M/mcL (4.19-5.50); Red Cell Distribution Width 20.4 % (11.5-14.5); Segmented Neutrophils % 56.4 %; White Blood Count 6.6 K/mcL (4.3-11.1)
[2021-12-27] MEDS ORDERED: *HR* Dextrose 50 % in Water (Syg) 50 ML SYRINGE ONE (09:14)
[2021-12-27] MEDS ORDERED: 0.9 % Sodium Chloride 1,000 ML ONE (09:14)
[2021-12-27 09:19] LABS: Mean Corpuscular Volume 82.6 fL (83.0-100.0)
[2021-12-27] MEDS ORDERED: Iopamidol - 370 500 ML MLS IVP ONE (09:25)
[2021-12-27 09:36] LABS: VBG HCO3 22 mEq/L (21-27); VBG PCO2 50 mmHg (41-51); VBG PH 7.25 pH Units (7.32-7.42); VBG PO2 61 mmHg (25-50)
[2021-12-27 09:40] LABS: Alanine Aminotransferase 68 Units/L (7-52); Albumin 3.6 g/dL (3.5-5.7); Albumin/Globulin Ratio 1.3 (1.1-2.2); Alkaline Phosphatase 103 Units/L (34-104); Aspartate Amino Transferase 160 Units/L (13-39); BUN/Creatinine Ratio 28 (6-26); Bilirubin,Direct 0.1 mg/dL (0.0-0.2); Bilirubin,Indirect 0.5 mg/dL (0.0-1.0); Bilirubin,Total 0.6 mg/dL (0.3-1.0); Blood Urea Nitrogen 56 mg/dL (8-23); Calcium 8.6 mg/dL (8.6-10.3); Carbon Dioxide 22 mEq/L (23-29); Chloride 97 mEq/L (98-107); Ethanol < 10 mg/dL (Less than 10); Globulin 2.8 g/dL (2.4-3.5); Glucose 57 mg/dL (70-105); Osmolality,Calculated 277 (280-300); Potassium 5.6 mEq/L (3.5-5.1); Sodium 127 mEq/L (136-145); Total Protein 6.4 g/dL (6.4-8.9)
[2021-12-27] MEDS ORDERED: Norepinephrine 4 MG/254 ML IV.SOLN IVC SCH (10:15)
[2021-12-27] MEDS ORDERED: Calcium Gluconate 1gm/50mL 1 GM/50 ML BAG IVPB ONE (10:15)
[2021-12-27] MEDS ORDERED: 0.9 % Sodium Chloride 500 ML IVC ONE (10:30)
[2021-12-27] MEDS ORDERED: *HR* Dextrose 50 % in Water (Syg) 50 ML SYRINGE IVP ONE (10:31)
[2021-12-27] MEDS ORDERED: 0.9 % Sodium Chloride 1,000 ML IV ONE (10:31)
[2021-12-27 11:20] LABS: Adenovirus Not Detected (Not Detect); Bordetella Pertussis Not Detected (Not Detect); Chlamydophila pneumoniae Not Detected (Not Detect); Coronavirus 229E Not Detected (Not Detect); Coronavirus HKU1 Not Detected (Not Detect); Coronavirus NL63 Not Detected (Not Detect); Coronavirus OC43 Not Detected (Not Detect); Human Metapneumovirus Not Detected (Not Detect); Human Rhinovirus/Enterovirus Not Detected (Not Detect); Influenza A Subtype 2009 H1 Not Detected (Not Detect); Influenza B Not Detected (Not Detect); Mycoplasma pneumoniae Not Detected (Not Detect); Parainfluenza Virus 1 Not Detected (Not Detect); Parainfluenza Virus 2 Not Detected (Not Detect); Parainfluenza Virus 3 Not Detected (Not Detect); Parainfluenza Virus 4 Not Detected (Not Detect); Respiratory Syncytial Virus Not Detected (Not Detect); SARS-CoV-2 Not Detected (Not Detect)
[2021-12-27 11:48] LABS: Bilirubin,Urine Negative (Negative); Blood,Urine Negative (Negative); Clarity,Urine Clear (Clear); Color,Urine Light-Yellow (Yellow); Glucose,Urine (UA) Normal (Normal); Ketones,Urine Negative (Negative); Leukocyte Esterase,Urine Negative (Negative); Nitrite,Urine Negative (Negative); PH,Urine 5.5 pH Units (5.0-8.0); Protein,Urine Trace mg/dL (Neg-Trace); Specific Gravity,Urine 1.012 (1.010-1.025); Urobilinogen,Urine Normal (Normal)
[2021-12-27 12:06] LABS: Amphetamine Screen,Urine Negative ng/mL (Cutoff=1000); Barbiturate Screen,Urine Negative ng/mL (Cutoff=200); Benzodiazepines Screen,Urine Negative ng/mL (Cutoff=200); Cannabinoid Screen,Urine Positive ng/mL (Cutoff = 50); Cocaine Screen,Urine Negative ng/mL (Cutoff= 300); Opiate Screen,Urine Positive ng/mL (Cutoff=300); Phencyclidine Screen,Urine Negative ng/mL (Cutoff=25)
[2021-12-27 12:43] LABS: Thyroid Stimulating Hormone 2.298 mcIU/mL (0.340-5.600); Troponin I < 0.03 ng/mL (< 0.04)
[2021-12-27] MEDS ORDERED: Albumin 25% 25gram/100mL 25 GM/100 ML IV.SOLN IVPB ONE ×2 (12:46→15:30)
[2021-12-27] MEDS ORDERED: Albumin Human 5% 12.5 GM/250 ML IV.SOLN IVC SCH (15:30)
[2021-12-27] MEDS ORDERED: Ringers Solution, Lactated 1,000 ML IVC SCH ×2 (15:45→19:21)
[2021-12-27] MEDS ORDERED: Naloxone 0.4 MG/ML INJ IVP PRN (15:46)
[2021-12-27] MEDS ORDERED: Dextrose Gel 15 GM/37.5 ML TUBE PO PRN ×2 (15:53)
[2021-12-27] MEDS ORDERED: D5% in Water 1,000 ML IVC PRN (15:53)
[2021-12-27] MEDS ORDERED: *HR* Dextrose 50 % in Water (Syg) 50 ML SYRINGE IVP PRN (15:53)
[2021-12-27 16:11] LABS: Creatine Kinase 5014 Units/L (30-223)
[2021-12-27] MEDS ORDERED: *HR* LORazepam 2 MG/ML VIAL IVP PRN ×3 (16:20)
[2021-12-27 16:28] LABS: Acetaminophen < 10 mcg/mL (10-20); BUN/Creatinine Ratio 34 (6-26); Blood Urea Nitrogen 45 mg/dL (8-23); Calcium 9.5 mg/dL (8.6-10.3); Carbon Dioxide 23 mEq/L (23-29); Chloride 103 mEq/L (98-107); Glucose 99 mg/dL (70-105); Osmolality,Calculated 292 (280-300); Potassium 4.4 mEq/L (3.5-5.1); Salicylate < 2.5 mg/dL (15.0-30.0); Sodium 135 mEq/L (136-145)
[2021-12-27] MEDS: Folic Acid 1 MG TABLET PO SCH (17:48)
[2021-12-27] MEDS: *HR* OxyCODONE/APAP 10/325 TABLET PO PRN ×2 (17:48→23:53)
[2021-12-27] MEDS: Vitamin B Complex/Vit C/Vit E 1 EACH TABLET PO SCH (17:48)
[2021-12-27] MEDS: Thiamine (B-1) 100 MG TABLET PO SCH (17:49)
[2021-12-27] MEDS: Insulin LISPRO 300 UNITS/3 ML VIAL SUBQ SCH (17:54)
[2021-12-27 20:14] LABS: Estimated Average Glucose 114 mg/dl; Hemoglobin A1C 5.6 %
[2021-12-27] MEDS ORDERED: Fluticasone Propionate Nasal 50 MCG/SPRAY BOTTLE NS PRN (20:52)
[2021-12-27] MEDS ORDERED: *HR* OxyCODONE/APAP 10/325 TABLET PO PRN (20:52)
[2021-12-27] MEDS ORDERED: Insulin LISPRO 300 UNITS/3 ML VIAL SUBQ SCH (21:00)
[2021-12-27] MEDS: Gabapentin 400 MG CAPSULE PO SCH (21:07)
[2021-12-27] MEDS: methocarbamoL 750 MG TABLET PO PRN (21:07)
[2021-12-28 02:52] LABS: Basophils % 0.5 %; Eosinophils # 0.2 K/mcL (0.0-0.6); Eosinophils % 4.6 %; Hematocrit 31.1 % (37.5-50.1); Hemoglobin 9.7 g/dL (12.9-16.9); Immature Granulocytes % 0.2 % (0-4); Lymphocytes # 0.9 K/mcL (0.6-4.6); Lymphocytes % 21.6 %; Mean Corpuscular HGB Conc 31.2 g/dL (31.6-35.5); Mean Corpuscular Hemoglobin 25.8 pg (28.0-33.3); Mean Corpuscular Volume 82.7 fL (83.0-100.0); Mean Platelet Volume 8.9 fL (9.4-12.4); Monocytes # 0.6 K/mcL (0.0-1.3); Monocytes % 14.3 %; Neutrophils # 2.4 K/mcL (1.6-8.9); Platelet Count 138 K/mcL (140-400); Red Blood Count 3.76 M/mcL (4.19-5.50); Red Cell Distribution Width 20.7 % (11.5-14.5); Segmented Neutrophils % 58.8 %; White Blood Count 4.1 K/mcL (4.3-11.1)
[2021-12-28] MEDS ORDERED: Ringers Solution, Lactated 1,000 ML IVC SCH ×2 (03:00→08:13)
[2021-12-28 03:39] LABS: Alanine Aminotransferase 64 Units/L (7-52); Albumin/Globulin Ratio 1.3 (1.1-2.2); Alkaline Phosphatase 106 Units/L (34-104); Aspartate Amino Transferase 122 Units/L (13-39); Bilirubin,Indirect 0.4 mg/dL (0.0-1.0); Bilirubin,Total 0.4 mg/dL (0.3-1.0); Creatine Kinase 2868 Units/L (30-223); Magnesium 2.5 mg/dL (1.6-2.6); Phosphorous 2.4 mg/dL (2.7-4.5)
[2021-12-28 05:02] LABS: BUN/Creatinine Ratio 34 (6-26); Blood Urea Nitrogen 29 mg/dL (8-23); Calcium 9.2 mg/dL (8.6-10.3); Carbon Dioxide 24 mEq/L (23-29); Chloride 106 mEq/L (98-107); Glucose 164 mg/dL (70-105); Osmolality,Calculated 293 (280-300); Potassium 4.5 mEq/L (3.5-5.1); Sodium 137 mEq/L (136-145)
[2021-12-28] MEDS: *HR* OxyCODONE/APAP 10/325 TABLET PO PRN ×3 (05:54→18:34)
[2021-12-28] MEDS: Insulin LISPRO 300 UNITS/3 ML VIAL SUBQ SCH ×4 (07:39→21:14)
[2021-12-28] MEDS: Folic Acid 1 MG TABLET PO SCH ×2 (08:32→12:13)
[2021-12-28] MEDS: Thiamine (B-1) 100 MG TABLET PO SCH ×2 (08:32→12:14)
[2021-12-28] MEDS: Vitamin B Complex/Vit C/Vit E 1 EACH TABLET PO SCH ×2 (08:32→12:13)
[2021-12-28] MEDS: Gabapentin 400 MG CAPSULE PO SCH ×4 (08:32→21:33)
[2021-12-28] MEDS: methocarbamoL 750 MG TABLET PO PRN (08:38)
[2021-12-28] MEDS ORDERED: Dextrose Gel 15 GM/37.5 ML TUBE PO PRN ×2 (08:47)
[2021-12-28] MEDS ORDERED: Naloxone 0.4 MG/ML INJ IVP PRN (08:47)
[2021-12-28] MEDS ORDERED: Iopamidol - 370 500 ML MLS IVP ONE (08:47)
[2021-12-28] MEDS ORDERED: Fluticasone Propionate Nasal 50 MCG/SPRAY BOTTLE NS PRN (08:47)
[2021-12-28] MEDS ORDERED: D5% in Water 1,000 ML IVC PRN (08:47)
[2021-12-28] MEDS ORDERED: *HR* LORazepam 2 MG/ML VIAL IVP PRN ×3 (08:47)
[2021-12-28] MEDS ORDERED: *HR* Dextrose 50 % in Water (Syg) 50 ML SYRINGE IVP PRN (08:47)
[2021-12-28] MEDS ORDERED: Aspirin Enteric Coated 81 MG Tablet PO SCH (09:00)
[2021-12-28] MEDS: Aspirin Enteric Coated 81 MG Tablet PO SCH (12:13)
[2021-12-28] MEDS: Ringers Solution, Lactated 1,000 ML IVC SCH ×2 (12:15→21:33)
[2021-12-29] MEDS: *HR* OxyCODONE/APAP 10/325 TABLET PO PRN ×4 (00:35→22:37)
[2021-12-29 03:12] LABS: Basophils % 0.4 %; Eosinophils # 0.2 K/mcL (0.0-0.6); Eosinophils % 4.3 %; Hematocrit 30.5 % (37.5-50.1); Hemoglobin 9.4 g/dL (12.9-16.9); Immature Granulocytes % 0.7 % (0-4); Lymphocytes # 0.9 K/mcL (0.6-4.6); Lymphocytes % 20.7 %; Mean Corpuscular HGB Conc 30.8 g/dL (31.6-35.5); Mean Corpuscular Hemoglobin 25.6 pg (28.0-33.3); Mean Corpuscular Volume 83.1 fL (83.0-100.0); Mean Platelet Volume 8.7 fL (9.4-12.4); Monocytes # 0.8 K/mcL (0.0-1.3); Monocytes % 16.9 %; Neutrophils # 2.5 K/mcL (1.6-8.9); Platelet Count 123 K/mcL (140-400); Red Blood Count 3.67 M/mcL (4.19-5.50); Red Cell Distribution Width 20.9 % (11.5-14.5); White Blood Count 4.5 K/mcL (4.3-11.1)
[2021-12-29 03:32] LABS: Alanine Aminotransferase 56 Units/L (7-52); Albumin/Globulin Ratio 1.4 (1.1-2.2); Alkaline Phosphatase 105 Units/L (34-104); Aspartate Amino Transferase 78 Units/L (13-39); BUN/Creatinine Ratio 22 (6-26); Bilirubin,Direct 0.1 mg/dL (0.0-0.2); Bilirubin,Indirect 0.2 mg/dL (0.0-1.0); Bilirubin,Total 0.3 mg/dL (0.3-1.0); Blood Urea Nitrogen 14 mg/dL (8-23); Calcium 9.5 mg/dL (8.6-10.3); Carbon Dioxide 29 mEq/L (23-29); Chloride 110 mEq/L (98-107); Creatine Kinase 1013 Units/L (30-223); Globulin 2.9 g/dL (2.4-3.5); Glucose 176 mg/dL (70-105); Osmolality,Calculated 281 (280-300); Phosphorous 2.3 mg/dL (2.7-4.5); Potassium 4.4 mEq/L (3.5-5.1); Sodium 133 mEq/L (136-145); Total Protein 6.9 g/dL (6.4-8.9)
[2021-12-29] MEDS: methocarbamoL 750 MG TABLET PO PRN ×3 (03:36→21:13)
[2021-12-29 04:02] LABS: Hepatitis B Surface Antigen Nonreactive (Nonreactive)
[2021-12-29 04:31] LABS: Hepatitis A Antibody IgM Nonreactive (Nonreactive)
[2021-12-29] MEDS: Insulin LISPRO 300 UNITS/3 ML VIAL SUBQ SCH ×4 (08:21→21:09)
[2021-12-29] MEDS: Gabapentin 400 MG CAPSULE PO SCH ×3 (08:27→21:09)
[2021-12-29] MEDS: Aspirin Enteric Coated 81 MG Tablet PO SCH (08:27)
[2021-12-29] MEDS: Vitamin B Complex/Vit C/Vit E 1 EACH TABLET PO SCH (08:28)
[2021-12-29] MEDS: Thiamine (B-1) 100 MG TABLET PO SCH (08:28)
[2021-12-29] MEDS: Folic Acid 1 MG TABLET PO SCH (08:28)
[2021-12-30] MEDS: *HR* OxyCODONE/APAP 10/325 TABLET PO PRN ×2 (04:34→10:48)
[2021-12-30 05:43] LABS: Basophils % 0.6 %; Eosinophils # 0.2 K/mcL (0.0-0.6); Eosinophils % 4.5 %; Hematocrit 32.2 % (37.5-50.1); Hemoglobin 10.1 g/dL (12.9-16.9); Immature Granulocytes % 0.2 % (0-4); Lymphocytes # 1.5 K/mcL (0.6-4.6); Lymphocytes % 30.7 %; Mean Corpuscular HGB Conc 31.4 g/dL (31.6-35.5); Mean Corpuscular Hemoglobin 26.2 pg (28.0-33.3); Mean Corpuscular Volume 83.6 fL (83.0-100.0); Mean Platelet Volume 9.2 fL (9.4-12.4); Monocytes # 0.6 K/mcL (0.0-1.3); Monocytes % 12.4 %; Neutrophils # 2.5 K/mcL (1.6-8.9); Platelet Count 140 K/mcL (140-400); Red Blood Count 3.85 M/mcL (4.19-5.50); Red Cell Distribution Width 21.8 % (11.5-14.5); Segmented Neutrophils % 51.6 %; White Blood Count 4.9 K/mcL (4.3-11.1)
[2021-12-30 06:01] LABS: Alanine Aminotransferase 46 Units/L (7-52); Albumin 4.2 g/dL (3.5-5.7); Albumin/Globulin Ratio 1.5 (1.1-2.2); Alkaline Phosphatase 98 Units/L (34-104); Aspartate Amino Transferase 47 Units/L (13-39); BUN/Creatinine Ratio 15 (6-26); Bilirubin,Direct 0.1 mg/dL (0.0-0.2); Bilirubin,Indirect 0.2 mg/dL (0.0-1.0); Bilirubin,Total 0.3 mg/dL (0.3-1.0); Blood Urea Nitrogen 10 mg/dL (8-23); Calcium 9.5 mg/dL (8.6-10.3); Carbon Dioxide 27 mEq/L (23-29); Chloride 104 mEq/L (98-107); Globulin 2.8 g/dL (2.4-3.5); Glucose 189 mg/dL (70-105); Magnesium 1.7 mg/dL (1.6-2.6); Osmolality,Calculated 288 (280-300); Phosphorous 2.6 mg/dL (2.7-4.5); Potassium 3.8 mEq/L (3.5-5.1); Sodium 137 mEq/L (136-145)
[2021-12-30 07:24] VITALS: BP 154/83; PULSE 75; TEMP 97.5; O2SAT 98
[2021-12-30] MEDS: Insulin LISPRO 300 UNITS/3 ML VIAL SUBQ SCH (07:35)
[2021-12-30] MEDS: Thiamine (B-1) 100 MG TABLET PO SCH (09:04)
[2021-12-30] MEDS: Gabapentin 400 MG CAPSULE PO SCH (09:05)
[2021-12-30] MEDS: Vitamin B Complex/Vit C/Vit E 1 EACH TABLET PO SCH (09:05)
[2021-12-30] MEDS: methocarbamoL 750 MG TABLET PO PRN (09:05)
[2021-12-30] MEDS: Aspirin Enteric Coated 81 MG Tablet PO SCH (09:05)
[2021-12-30] MEDS: Folic Acid 1 MG TABLET PO SCH (09:05)
== END 2021-12-30 11:53 | disposition home health service (06) | DRG 432 ==
LOC: 2NNU 08:52 → EMEROOARM 08:52 → 2NNU 16:52 → SUATTDRO 17:08 → 2ANU 12-29 07:52
PROVIDERS: ADMIT Internal Medicine; ATTEND Pharmacist